=== PATIENT | male | born 1975 | race Caucasian/White ===

== ENCOUNTER 2018-10-07 09:26 | Inpatient (IN) | payer MEDICAID ==
[~2018-10-07] VITALS: Ht 165.1 cm; Wt 118.2 kg
[2018-10-07 09:38] VITALS: Ht 165.1 cm; Wt 118.2 kg
[2018-10-07] MEDS ORDERED: IOHEXOL 100 ML ONE (09:45)
[2018-10-07] MEDS ORDERED: SOD CHLORIDE 0.9% 100 ML ONE (09:45)
[2018-10-07] MEDS ORDERED: IOHEXOL 350MG/ML 50 ML BTL ONE (09:46)
[2018-10-07] MEDS ORDERED: LISI-471 PO (10:26)
--- NOTE | 2018-10-07 11:18 | ERD ---
ER Documentation Chief Complaint Chief Complaint Pt. 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 The patient does not have any dy sarthria or a aphasia. He has been ambulatory without difficulty. The patient's symptoms began last night at around 7 PM and they continued when he woke up this morning which is what prompted him to call an ambulance. The patient does not endorse any eye pain. He does not endorse any visual field deficits. He reports trouble focusing. He does not endorse any alleviating or exacerbating factors. The patient denies feeling sick recently. The patient denies fever or chills. The patient has had no headache. The patient does not endorse neck or back pain. The patient denies lightheadedness or dizziness. The patient has had no chest pain or trouble breathing. The patient denies nausea or vomiting. The patient denies abdominal pain. The patient denies changes to bowel movements or urination. ROS All systems reviewed and are negative except as per history of present illness. Medications Home Meds Reported Medications Lisinopril* (Lisinopril*) 20 Mg Tablet, 20 MG PO DAILY, #30 TAB 10/07/18 Allergies Allergies: Coded Allergies: No Known Allergy (Unverified , 10/07/18) PMhx/Soc History of Surgery: Yes (abdominal, right eye) Anesthesia Reaction: No Hx Neurological Disorder: No Hx Respiratory Disorders: No Hx Cardiac Disorders: Yes (HTN) Hx Psychiatric Problems: No Hx Miscellaneous Medical Probl: Yes (right eye blindness due to glaucoma) Hx Alcohol Use: No Hx Substance Use: No Hx Tobacco Use: No Smoking Status: Never smoker FmHx Family History: No diabetes Physical Exam Vitals Vital Signs Date Temp Pulse Resp B/P (MAP) Pulse Ox O2 O2 Flow FiO2 Time Delivery Rate 10/07/18 72 20 137/100 98 Room Air 11:15 (112) 10/07/18 97.8 86 20 142/92 98 09:38 (109) Physical Exam Const: No apparent distress, well-developed, well-nourished Head: Normocephalic, Atraumatic Eyes: Normal Conjunctiva. Extraocular movements intact. Left pupil equal and reactive. Right pupil is opaque and nonreactive, chronic. ENT: Normal External Ears, Nose and Mouth. Neck: Full range of motion. No meningismus. Resp: Clear to auscultation bilaterally, No wheezes, rales or rhonchi Cardio: Regular rate and rhythm. No murmurs, rubs or gallops Abd: Soft, non tender, non distended. Normal bowel sounds Skin: No petechiae or rashes Back: No midline tenderness. No CVA tenderness Ext: No cyanosis, or edema Neur: Awake and alert, oriented 4. Cranial nerves intact. No facial droop. Normal strength, sensation and coordination. Psych: Normal Mood and Affect Result Diagram: 10/07/1895010/07/18950 Results 24 hrs Laboratory Tests Test 10/07/18 09:43 10/07/18 09:51 10/07/18 11:15 Bedside Glucose 146 mg/dL White Blood Count 10.6 10^3/ul Red Blood Count 5.09 10^6/ul Hemoglobin 14.6 g/dl Hematocrit 44.9 % Mean Corpuscular Volume 88.2 fl Mean Corpuscular Hemoglobin 28.7 pg Mean Corpuscular 32.5 g/dl Hemoglobin Concent Red Cell Distribution Width 12.6 % Platelet Count 205 10^3/UL Mean Platelet Volume 11.5 fl Immature Granulocytes % 0.600 % Neutrophils % 73.0 % Lymphocytes % 15.9 % Monocytes % 8.6 % Eosinophils % 1.5 % Basophils % 0.4 % Nucleated Red Blood Cells % 0.0 /100WBC Immature Granulocytes # 0.060 10^3/ul Neutrophils # 7.8 10^3/ul Lymphocytes # 1.7 10^3/ul Monocytes # 0.9 10^3/ul Eosinophils # 0.2 10^3/ul Basophils # 0.0 10^3/ul Nucleated Red Blood Cells # 0.0 10^3/ul Prothrombin Time 12.6 Sec Prothrombin Time Ratio 1.0 INR International 0.93 Normalized Ratio Activated Partial Thromboplast 30.5 Sec Time Sodium Level 143 mmol/L Potassium Level 3.7 mmol/L Chloride Level 107 mmol/L Carbon Dioxide Level 27 mmol/L Anion Gap 9 Blood Urea Nitrogen 20 mg/dl Creatinine 0.66 mg/dl Est Glomerular Filtrat > 60 mL/min Rate mL/min Glucose Level 171 mg/dl Hemoglobin A1c 6.6 % Calcium Level 9.0 mg/dl Creatine Kinase 94 IU/L Creatine Kinase Index 1.8 Creatinine Kinase MB (Mass) 1.65 ng/ml Troponin I < 0.012 ng/ml Triglycerides Level 247 mg/dl Cholesterol Level 146 mg/dl LDL Cholesterol, Calculated 61 mg/dl HDL Cholesterol 36 mg/dl Cholesterol/HDL Ratio 4.0 RATIO Ethyl Alcohol Level < 10.0 mg/dl Urine Color STRAW Urine Clarity CLEAR Urine pH 6.0 Urine Specific [place] > 1.060 Urine Ketones NEGATIVE mg/dL Urine Nitrite NEGATIVE mg/dL Urine Bilirubin NEGATIVE mg/dL Urine Urobilinogen NEGATIVE mg/dL Urine Leukocyte Esterase NEGATIVE Darrell/ul Urine Hemoglobin NEGATIVE mg/dL Urine Glucose NEGATIVE mg/dL Urine Total Protein NEGATIVE mg/dl Urine Opiates Screen Negative Urine Barbiturates Negative Urine Amphetamines Screen Negative Urine Benzodiazepines Screen Negative Urine Cocaine Screen Negative Urine Cannabinoids Negative Current Medications Medications Dose Sig/Luna Start Time Status Last (Trade) Ordered Route PRN Stop Time Admin Dose Reason Admin Aspirin 324 mg ONCE ONCE 10/07/18 10/07/18 (Aspirin) PO 13:00 10/07/18 12:47 13:01 Procedures/MDM MDM The patient's presentation warrants further investigation. Previous medical records, if available, were reviewed. LABS The patient's laboratory testing was obtained and reviewed. No emergent treatment was required unless described below. CBC: No E/o systemic infection or severe anemia or thrombocytopenia Chemistry: No E/o severe acidosis or alkalosis or renal failure or diabetic ketoacidosis PT/INR: No E/o significant coagulopathy Troponin: No E/o acute ischemia Lipid panel: Hypertriglyceridemia HbA1c: Elevated Tox: No E/o alcohol abuse. Urine: No evidence of infection or hematuria. UDS is negative. EKG EKG read by me: Rate/Rhythm: Regular rate and rhythm at a rate of 85 bpm Intervals: Normal [place]: Normal Impression: No evidence of acute ischemia or arrhythmia IMAGING Imaging and Radiology interpretation reviewed. CT head FINDINGS: The ventricular system and peripheral CSF spaces are unremarkable. Extensive periventricular and subcortical deep white matter changes that is nonspecific and consistent with chronic microvascular ischemic disease. No evidence of intracranial masses hemorrhages or midline shift. The mclaughlin-white matter differentiation is unremarkable. Bones of the calvarium are intact. The visualized paranasal sinuses and mastoids are unremarkable. The bones of the calvarium are intact. Soft tissues are unremarkable. Incidentally noted is evidence of previous bilateral ocular surgery. IMPRESSION: 1. No evidence of intracranial masses hemorrhages or midline shift. 2. Extensive nonspecific chronic microvascular ischemic changes. Addendum: Dr. Kitchen was telephoned of these results on 10/07/2018 at 1005 hours. Electronically viewed and signed by Physician Edgardo on 10/07/2018 10:12 CTA Head FINDINGS: CT ANGIOGRAM NECK: The origins of the great vessels arising off of the aortic arch are patent with common origin of the brachiocephalic, left common carotid arteries noted. The bilateral common carotid arteries appear patent. The bilateral carotid bulbs - bifurcations and internal carotid arteries are patent, without stenosis by NASCET criteria identified. Noted is medial - retropharyngeal course of the proximal left internal carotid artery. The vis ualized bilateral vertebral arteries appear patent with dominant left vertebral artery noted. No dissection is identified. CT ANGIOGRAM BRAIN: The bilateral internal carotid arteries are patent. The bilateral middle and anterior cerebral arteries appear patent. The bilateral vertebral arteries are patent with dominant left vertebral artery. The basilar artery is patent. The bilateral posterior cerebral arteries appear patent. No aneurysm or arteriovenous malformation is identified. IMPRESSION: No cervical or major vessel intracranial arterial occlusion/stenosis identified. Electronically viewed and signed by .Danish Tong MD, MD on 10/07/2018 11:02 CXR FINDINGS: The heart and mediastinum are within normal limits. The lungs are clear. There is no pleural effusion or pneumothorax. IMPRESSION: No acute disease Electronically viewed and signed by Bud Ron MD, on 10/07/2018 10:21 TREATMENT/DISPOSITION The patient's presenting with nonfocal neurologic symptoms with reported transient left sided visual deficit and right-sided paresthesias. The patient's neurologic exam is objectively intact, however. The patient has no sensory, strength or coordination deficits. The CT scan does not reveal any obvious acute ischemia. However, there is extensive nonspecific chronic microvascular ischemic changes that the radiologist was concerned about given the patient's age. While the patient's symptoms have improved, TIA is certainly a possibility. There is a recommendation to evaluate the patient further and obtain an MRI. I do feel that this would be appropriate. The patient is not a candidate for TPA. There is no evidence of large vessel occlusion on the CTA. The patient is not a candidate for thrombectomy. The patient was given a dose of aspirin in the emergency department. The patient endorses decreased ability to focus and blurry vision of the left eye. However, he is able to see. His visual dietrich are intact. I do not see evidence of glaucoma at this time. The patient does not have evidence of iritis or conjunctivitis or endophthalmitis. There is no ocular trauma. The patient's symptoms are not consistent with retinal or vitreous hemorrhage. ADMISSION At this time, I feel that the patient requires admission for further evaluation and management. The patient will be admitted to panel in accordance with the patient's insurance. The patient was accepted by Dr. Galo at 12:38 PM on October 07, 2018. Disclaimer: Inadvertent spelling and grammatical errors are likely due to EHR/dictation software use and do not reflect on the overall quality of patient care. Note that the electronic time recorded on this note does not necessarily reflect the actual time of the patient encounter. Departure Diagnosis: Primary Impression: TIA (transient ischemic attack) Additional Impressions: Fatigue Fatigue type: unspecified Qualified Codes: R53.83 - Other fatigue Blurry vision Paresthesias Hypertriglyceridemia Condition: Serious ROSALBA KITCHEN MD October 07, 2018 11:18
[2018-10-07] MEDS ORDERED: ACETAMINOPHEN 325 MG TAB PO PRN (13:00)
[2018-10-07] MEDS ORDERED: ASPIRIN 81 MG TAB PO ONE (13:00)
[2018-10-07] MEDS ORDERED: ONDANSETRON 4 MG INJ IV PRN ×2 (13:00→14:00)
[2018-10-07] MEDS ORDERED: ATORVASTATIN 80 MG TAB PO ONE (14:00)
[2018-10-07] MEDS ORDERED: DOCUSATE SODIUM 100 MG CAP PO PRN (14:00)
[2018-10-07] MEDS ORDERED: MAGNESIUM HYDROXIDE 30ML CUP PO PRN (14:00)
[2018-10-07] MEDS ORDERED: HYDROCODONE/APAP (5/325) TAB PO PRN (14:00)
[2018-10-07] MEDS ORDERED: morphine 2 MG INJ IV PRN (14:00)
[2018-10-07] MEDS ORDERED: ALBUTEROL/IPRATROPIUM (NEB) 3 ML AMP HHN PRN (14:00)
[2018-10-07] MEDS ORDERED: NACL 0.9% 3 ML SYG IV SCH (14:00)
[2018-10-07] MEDS ORDERED: LORAZEPAM 2 MG INJ IV PRN (14:00)
[2018-10-07] MEDS ORDERED: NITROGLYCERIN (SL) 0.4 MG TAB SL PRN (14:00)
[2018-10-07] MEDS ORDERED: DEXTROSE 50% 50 ML SYRINGE IV PRN ×2 (14:30)
[2018-10-07] MEDS ORDERED: GLUCAGON 1 MG INJ IM PRN (14:30)
[2018-10-07] MEDS ORDERED: GLUCOSE GEL 15 GRAM TUBE BUCCAL PRN (14:30)
[2018-10-07] MEDS ORDERED: GLUCOSE GEL 15 GRAM TUBE PO PRN ×2 (14:30)
--- NOTE | 2018-10-07 15:00 | HP ---
DATE OF ADMISSION: 10/07/2018 IDENTIFICATION: This is a 43-year-old male. CHIEF COMPLAINT: Decreased vision and right-sided numbness. HISTORY OF PRESENT ILLNESS: A 43-year-old male with past medical history of right eye blindness seco ndary to glaucoma, hypertension, previous right eye surgery, who has been having complaints that bega n last night since 7:00 p.m. He presents with blurry vision, also some weakness symptoms and weaknes s including his right arm and face. The patient denied any upper or lower GI bleeding. No nausea, v omiting. No fevers or chills. No diarrhea or constipation. He has been ambulating well without any difficulty. When he woke this morning and the symptoms were still present, he decided to call EMS. When he arrived, he was found with normal vital signs and normal labs, but there was a concern of TI A and he underwent head imaging studies that showed no evidence of any intracranial masses, hemorrhag es or midline shifts. There are some nonspecific chronic microvascular ischemic changes. His CT of the neck did not show any cervical or major intracranial arterial occlusions, stenosis identified. PAST MEDICAL HISTORY: As above. ALLERGIES: NO KNOWN DRUG ALLERGIES. HOME MEDICATIONS: Lisinopril 20 mg daily. PAST SURGICAL HISTORY: Right eye surgery and also abdominal surgery. SOCIAL HISTORY: Negative for smoking, drinking or IV drug abuse. FAMILY HISTORY: Noncontributory. PHYSICAL EXAMINATION: VITAL SIGNS: Today, T-max 97.8, pulse 86 to 72, respirations 20, blood pressure 142 systolic over 90 diastolic, saturating at 98% room air. GENERAL: The patient is lying in bed, answering questions appropriately, slightly obese, otherwise i n no acute distress. HEENT: Left pupil is equal, round, reactive to light. Extraocular muscles are intact. The right pu pil is opaque, nonreactive. NECK: Supple. No thyromegaly. LUNGS: Clear to auscultation bilaterally. CARDIOVASCULAR: S1, S2 heard. No murmurs, rubs or gallops. ABDOMEN: Soft, nontender, nondistended. Normal bowel sounds. No rebound or guarding. MUSCULOSKELETAL: No lower extremity edema bilaterally. NEUROLOGIC: No focal deficits. LABORATORIES: CBC is normal. Basic metabolic panel is normal. Troponin is negative. Triglycerides were high at 247. UA shows negative nitrites, negative leukocyte esterase. Blood alcohol level is less than 10. U-tox is negative. Coags are normal. DIAGNOSTIC DATA: We mentioned the brain scan findings. He also had a chest x-ray performed that indy wed no acute disease. ASSESSMENT AND PLAN: A 43-year-old male with prior history of glaucoma and hypertension, who comes i n with right-sided weakness symptoms that are resolved now and decreased vision left eye, rule out st roke versus transient ischemic attack. 1. Right-sided weakness symptoms and decreased left eye vision. Again, suspect transient ischemic a ttack versus stroke in the differential diagnosis versus other. Admit the patient. Do neuro checks every 4 hours. Get PT, OT and speech therapy consults. Get carotid Doppler studies and echocardiogr am as well. Continue high dose aspirin and statin. Allow for permissive hypertension at this time. Follow up A1c, TSH and lipid panel. Also, start Lipitor. 2. For hypertension, again allow for permissive hypertension at this time. 3. Deep venous thrombosis prophylaxis. Heparin subcutaneously. Dictated By: BRALDY ACOSTA Conf#: [id number] DID#: [id number] CC: ALBINA BROOKE;*EndCC*
[2018-10-07 16:15] VITALS: BP 165/89; PULSE 66; RESP 16
[2018-10-07] MEDS: SOD CHLORIDE 0.45% 1,000 ML IV SCH (16:40)
[2018-10-07 16:49] VITALS: PULSE 76
[2018-10-07] MEDS: INSULIN ASPART [NOVOLOG] 3 ML PEN SC SCH ×2 (17:00→20:49)
--- NOTE | 2018-10-07 19:00 | RADRPT ---
Echocardiogram Report Patient Name: SANDER GREENEatient ID: [id number] : 1975 (43y 8m)Study Date: 10/07/2018 2:02:55 PM Gender: MAccession #: [id number] Tech: ElishaLeticia Beltran [facility] Location: [facility] Ref.Physician: BRADLY MONROY Height(Cm): BSA: Weight(Kg): Quality: AdequateAccount #: Procedures: Echocardiographic Report: Transthoracic echocardiogram with complete 2D, M-Mode, and doppler examination. Indications: Transient Ischemic Attack. Measurements: 2D/M Mode Doppler Measurement Value Normal Range Measurement Value Normal Range LVIDd 2D 4.3 [ 4.2 - 5.8 ] cm AV Peak Hans[place] 162.0 [ 100.0 - 170.0 ] cm/sec LVIDs 2D 2.6 [ 2.5 - 4.0 ] cm AV Peak PG 10.0 [ 2.0 - 9.0 ] mmHg LVPWd 2D 1.0 [ 0.6 - 1.0 ] cm LVOT Peak Hans[place] 154.0 [ 70.0 - 110.0 ] cm/sec IVSd 2D 1.0 [ 0.6 - 1.0 ] cm LVOT Peak PG 9.0 [ 2.0 - 6.0 ] mmHg AoR Diam 2D 2.8 [ 2.6 - 3.4 ] cm MV E Peak Hans[place] 78.0 [ 60.0 - 130.0 ] cm/sec LA Dimen 2D 2.8 [ 3.0 - 4.0 ] cm MV E Peak PG 2.0 mmHg MV A Peak Hans[place] 86.0 [ 100.0 - 120.0 ] cm/sec MV A Peak PG 3.0 mmHg Lat E` Hansel 8.0 [ 10.0 - 15.0 ] cm/sec Lateral E/E` 9.8 [ 1.0 - 2.0 ] ratio TR Mean Hansel 216.0 cm/sec TR Mean PG 19.0 mmHg RVSP 22.0 [ 10.0 - 36.0 ] mmHg RA Pressure 3.0 mmHg Findings: Left Ventricle: Normal left ventricular systolic function. Normal left ventricular cavity size. Normal left ventricular wall thickness. Ejection fraction is visually estimated at 65 %. Tissue Doppler/Mitral Doppler indices are consistent with impaired relaxation (Stage I diastolic dysfunction). Right Ventricle: Normal right ventricular size. Normal right ventricular systolic function. Left Atrium: The left atrium is normal in size. Right Atrium: The right atrium is normal in size. Mitral Valve: Normal appearance and function of the mitral valve with trace physiologic regurgitation. Aortic Valve: Normal appearance of the aortic valve. No significant aortic stenosis or insufficiency. Tricuspid Valve: Normal appearance of the tricuspid valve. Estimated peak PA systolic pressure 22 mmHg. There is trace tricuspid regurgitation. Pulmonic Valve: Normal pulmonic valve appearance. Pericardium: Normal pericardium with no significant pericardial effusion. Aorta: Normal aortic root. IVC: Normal size and normal respiratory collapse consistent with normal right atrial pressure. Conclusions: Normal left ventricular systolic function. Normal left ventricular cavity size. Normal left ventricular wall thickness. Ejection fraction is visually estimated at 65 %. Tissue Doppler/Mitral Doppler indices are consistent with impaired relaxation (Stage I diastolic dysfunction). Normal right ventricular size. Normal right ventricular systolic function. The left atrium is normal in size. The right atrium is normal in size. No significant valvular stenosis or regurgitation seen. Normal pericardium with no significant pericardial effusion. Electronically Signed By: Dom Mckee 2018-10-07 19:00:03 PDT
[2018-10-07 20:00] VITALS: PULSE 62
[2018-10-07 20:33] VITALS: BP 155/83; PULSE 65; RESP 20
[2018-10-07] MEDS: HEPARIN 5,000 UNIT/1 ML VIAL SC SCH (20:51)
[2018-10-08] VITALS (14 sets, daily range): BP systolic 128–162; BP diastolic 69–92; PULSE 64–96; RESP 17–20
[2018-10-08] MEDS: INSULIN ASPART [NOVOLOG] 3 ML PEN SC SCH ×6 (01:00→21:00)
[2018-10-08] MEDS: ACCU-CHEK XX SCH (01:12)
[2018-10-08] MEDS: SOD CHLORIDE 0.45% 1,000 ML IV SCH ×3 (03:06→22:11)
[2018-10-08] MEDS: ACETAMINOPHEN 325 MG TAB PO PRN ×2 (06:11→16:51)
[2018-10-08] MEDS: ATORVASTATIN 20 MG TAB PO SCH ×2 (07:41→22:02)
[2018-10-08] MEDS: HEPARIN 5,000 UNIT/1 ML VIAL SC SCH ×2 (09:00→22:38)
[2018-10-08] MEDS: ASPIRIN (EC) 325 MG TAB PO SCH (09:20)
--- NOTE | 2018-10-08 14:12 | PN ---
Date/Time of Note Date/Time of Note DATE: 10/08/18 TIME: 14:03 Assessment/Plan VTE Prophylaxis Risk score (from Ns)>0 risk: 2 SCD applied (from Ns): No SCD contraindicated: other Pharmacological prophylaxis: heparin Lines/Catheters IV C[facility]ter Type (from [facility]): Peripheral IV Urinary Cath still in place: No Assessment/Plan Hospital Course S: Patient found with acute CVA on MRI brain findings. Worked with physical therapy and occupational therapy teams earlier today. No other acute events overnight. O: VS- see below PHYSICAL EXAMINATION: GENERAL: lying in bed, answering questions appropriately, slightly obese, otherwise in no acute distress. HEENT: Left pupil is equal, round, reactive to light. Extraocular muscles are intact. The right pupil is opaque, nonreactive. NECK: Supple. No thyromegaly. LUNGS: Clear to auscultation bilaterally. CARDIOVASCULAR: S1, S2 heard. No murmurs, rubs or gallops. ABDOMEN: Soft, nontender, nondistended. Normal bowel sounds. No rebound or guarding. MUSCULOSKELETAL: No lower extremity edema bilaterally. NEUROLOGIC: No focal deficits. MRI brain: IMPRESSION: 1. An 8 mm focus of acute/recent infarct in the left thalamus. 2. No acute intracranial hemorrhage or mass. 3. Marked confluent nonspecific foci of white matter signal abnormality. Differential consideration includes chronic hypertensive encephalopathy, vasculopathy, CADASIL, microvascular ischemic disease, demyelinating disease, toxic /metabolic or infectious/inflammatory insults. ASSESSMENT AND PLAN: 43-year-old male with prior history of glaucoma and hypertension, who comes in with right-sided weakness symptoms that are resolved now and decreased vision left eye, rule out stroke versus transient ischemic attack. 1. Right-sided weakness symptoms and decreased left eye vision. Again, positive CVA - 8 mm focus found in left thalamus area. -Continue neuro checks every 4 hours and follow-up recommendations from PT, OT and speech therapy consults. - Continue high dose aspirin and statin. - Allow for permissive hypertension at this time. - Follow up A1c, TSH and lipid panel. 2. For hypertension - again allow for permissive hypertension at this time. 3. Deep venous thrombosis prophylaxis. Heparin subcutaneously. Result Diagram: 10/08/18 0505 10/08/18 0505 Results 24hrs Laboratory Tests Test 10/07/18 16:55 10/07/18 20:49 10/08/18 01:08 10/08/18 05:05 Bedside Glucose 88 85 84 White Blood Count 10.4 Red Blood Count 5.30 Hemoglobin 14.9 Hematocrit 46.9 Mean Corpuscular 88.5 Volume Mean Corpuscular 28.1 L Hemoglobin Mean Corpuscular 31.8 L Hemoglobin Concent Red Cell 12.9 Distribution Width Platelet Count 200 Mean Platelet Volume 11.6 H Immature 0.600 H Granulocytes % Neutrophils % 69.5 Lymphocytes % 17.8 Monocytes % 9.5 Eosinophils % 2.1 Basophils % 0.5 Nucleated Red Blood 0.0 Cells % Immature 0.060 H Granulocytes # Neutrophils # 7.3 Lymphocytes # 1.9 Monocytes # 1.0 H Eosinophils # 0.2 Basophils # 0.1 Nucleated Red Blood 0.0 Cells # Sodium Level 142 Potassium Level 3.9 Chloride Level 106 Carbon Dioxide Level 29 Anion Gap 7 Blood Urea Nitrogen 16 Creatinine 0.67 Est Glomerular > 60 Filtrat Rate mL/min Glucose Level 93 # Hemoglobin A1c 6.4 H Calcium Level 8.9 Phosphorus Level 3.5 Magnesium Level 1.9 Triglycerides Level 362 H Cholesterol Level 141 LDL Cholesterol, 40 Calculated HDL Cholesterol 29 Cholesterol/HDL 4.8 Ratio Thyroid Stimulating 1.750 Hormone (TSH) Test 10/08/18 05:26 10/08/18 09:22 10/08/18 11:38 Bedside Glucose 85 90 125 Exam/Review of Systems Exam Vitals Vital Signs Date Temp Pulse Resp B/P (MAP) Pulse Ox O2 O2 Flow FiO2 Time Delivery Rate 10/08/18 96 12:10 10/08/18 98.1 17 145/89 97 Room Air 07:33 (107) Intake and Output 10/07/18 10/07/18 10/08/18 1515:00 23:00 07:00 IntakeIntake Total 135 ml BalanceBalance 135 ml Results Results 24hrs Laboratory Tests Test 10/07/18 16:55 10/07/18 20:49 10/08/18 01:08 10/08/18 05:05 Bedside Glucose 88 85 84 White Blood Count 10.4 Red Blood Count 5.30 Hemoglobin 14.9 Hematocrit 46.9 Mean Corpuscular 88.5 Volume Mean Corpuscular 28.1 L Hemoglobin Mean Corpuscular 31.8 L Hemoglobin Concent Red Cell 12.9 Distribution Width Platelet Count 200 Mean Platelet Volume 11.6 H Immature 0.600 H Granulocytes % Neutrophils % 69.5 Lymphocytes % 17.8 Monocytes % 9.5 Eosinophils % 2.1 Basophils % 0.5 Nucleated Red Blood 0.0 Cells % Immature 0.060 H Granulocytes # Neutrophils # 7.3 Lymphocytes # 1.9 Monocytes # 1.0 H Eosinophils # 0.2 Basophils # 0.1 Nucleated Red Blood 0.0 Cells # Sodium Level 142 Potassium Level 3.9 Chloride Level 106 Carbon Dioxide Level 29 Anion Gap 7 Blood Urea Nitrogen 16 Creatinine 0.67 Est Glomerular > 60 Filtrat Rate mL/min Glucose Level 93 # Hemoglobin A1c 6.4 H Calcium Level 8.9 Phosphorus Level 3.5 Magnesium Level 1.9 Triglycerides Level 362 H Cholesterol Level 141 LDL Cholesterol, 40 Calculated HDL Cholesterol 29 Cholesterol/HDL 4.8 Ratio Thyroid Stimulating 1.750 Hormone (TSH) Test 10/08/18 05:26 10/08/18 09:22 10/08/18 11:38 Bedside Glucose 85 90 125 Medications Medication Current Medications IV Flush (NS 3 ml) 3 ml PER PROTOCOL IV ; Start 10/07/18 at 14:00 Ondansetron HCl (Zofran Inj) 4 mg Q6H PRN IV NAUSEA/VOMITING; Start 10/07/18 at 14:00 Acetaminophen (Tylenol Tab) 650 mg Q6H PRN PO .PAIN 1-3 OR TEMP Last administered on 10/08/18at 06:11; Admin Dose 650 MG; Start 10/07/18 at 14:00 Acetaminophen/ Hydrocodone Bitart ([place] (5/325)) 1 tab Q6H PRN PO .MOD PAIN 4- 6; Start 10/07/18 at 14:00 Morphine Sulfate (morphine) 2 mg Q4H PRN IV .SEVERE PAIN 7-10; Start 10/07/18 at 14:00 Docusate Sodium (Colace) 100 mg Q12H PRN PO .CONSTIPATION; Start 10/07/18 at 14:00 Magnesium Hydroxide (Milk Of Mag) 30 ml DAILY PRN PO .CONSTIPATION; Start 10/07/18 at 14:00 Heparin Sodium (Porcine) (Heparin (5000 Units/1ml)) 5,000 unit Q12 SC Last administered on 10/07/18at 20:51; Admin Dose 5,000 UNIT; Start 10/07/18 at 21:00 Sodium Chloride 1,000 ml @ 75 mls/hr [id number] IV Last administered on 10/08/18at 06:35; Admin Dose 75 MLS/HR; Start 10/07/18 at 13:46 Lorazepam (Ativan) 0.5 mg Q6H PRN IV ANXIETY; Start 10/07/18 at 14:00 Albuterol/ Ipratropium (Duoneb) 3 ml Q4H RESP THERAPY PRN HHN SHORTNESS OF BREATH; Start 10/07/18 at 14:00 Hydralazine HCl (Apresoline) 10 mg Q6H PRN IV ELEVATED BLOOD PRESSURE; Start 10/07/18 at 14:00 Nitroglycerin (Nitroglycerin (Sl Tab) 0.4 Mg) 1 tab Q5M PRN SL ANGINA; Start 10/07/18 at 14:00 Aspirin (Ecotrin) 325 mg DAILY PO Last administered on 10/08/18at 09:20; Admin Dose 325 MG; Start 10/08/18 at 09:00 Diagnostic Test (Pha) (Accu-Chek) 1 ea 02 XX ; Start 10/08/18 at 02:00 Insulin Aspart (Novolog Insulin Pen) NOVOLOG *MILD* ALGORI... Q4 SC ; Start 10/07/18 at 17:00 Atorvastatin Calcium (Lipitor) 20 mg HS PO ; Start 10/08/18 at 09:00 Miscellaneous Information 1 ea NOTE XX ; Start 10/07/18 at 14:30 Glucose (Glutose) 15 gm Q15M PRN PO DECREASED GLUCOSE; Start 10/07/18 at 14:30 Glucose (Glutose) 22.5 gm Q15M PRN PO DECREASED GLUCOSE; Start 10/07/18 at 14:30 Dextrose (D50w Syringe) 25 ml Q15M PRN IV DECREASED GLUCOSE; Start 10/07/18 at 14:30 Dextrose (D50w Syringe) 50 ml Q15M PRN IV DECREASED GLUCOSE; Start 10/07/18 at 14:30 Glucagon (Glucagen) 1 mg Q15M PRN IM DECREASED GLUCOSE; Start 10/07/18 at 14:30 Glucose (Glutose) 15 gm Q15M PRN BUCCAL DECREASED GLUCOSE; Start 10/07/18 at 14:30 BRADLY MONROY October 08, 2018 14:12
--- NOTE | 2018-10-08 17:08 | CONS ---
Assessment/Plan Assessment/Plan Hospital Course 43 yo M with hx of HTN, obesity who presents for evaluation of R hemisensory loss, R arm/leg weakness. MRI brain confirmed an acute L thalamic infarct... for which neurology is consulted. CTA H/N is unremarkable Echo is unremarkable UDS neg, LDL 40 P: Add hypercoag panel, ESR, RPR, HIV Recommend MICHAEL to further evaluate a cardioembolic etiology Cont ASA/Lipitor for secondary stroke prevention BP and other medical management per primary PT/OT as necessary Will follow clinically, to recommend neurologic studies, as necessary Consultation Date/Type/Reason Admit Date/Time October 08, 2018 at 09:32 Type of Consult Neurology Reason for Consultation stroke Requesting Provider: BRADLY MONROY Date/Time of Note DATE: 10/08/18 TIME: 17:04 Hx of Present Illness 43 yo M with hx of severe glaucoma c/b R eye blindness, HTN, obesity who presents with blurred vision and R face and arm weakness. History was obtained from pt and chart review. He currently endorses minor R arm and leg weakness. He additionally notes tingling in the R side of his face and hand. 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 He presents with blurry vision, also some weakness symptoms and weakness including his right arm and face. The patient denied any upper or lower GI bleeding. No nausea, vomiting. No fevers or chills. No diarrhea or constipation. He has been ambulating well without any difficulty. When he woke this morning and the symptoms were still present, he decided to call EMS. When he arrived, he was found with normal vital signs and normal labs, but there was a concern of TIA and he underwent head imaging studies that showed no evidence of any intracranial masses, hemorrhages or midline shifts. There are some nonspecific chronic microvascular ischemic changes. His CT of the neck did not show any cervical or major intracranial arterial occlusions, stenosis identified. negative unless noted otherwise in HPI Exam/Review of Systems Exam Vitals Vital Signs Date Temp Pulse Resp B/P (MAP) Pulse Ox O2 O2 Flow FiO2 Time Delivery Rate 10/08/18 87 16:38 10/08/18 97.7 18 130/87 98 Room Air 16:36 (101) Intake and Output 10/07/18 10/07/18 10/08/18 1515:00 23:00 07:00 IntakeIntake Total 135 ml BalanceBalance 135 ml Exam PE: Gen Appearance: No Apparent Distress HEENT: Normocephalic Cardiovascular: Regular rate Lungs: Clear bilaterally Abdomen: Soft Extremities: Dry NE: The patient was alert and oriented. Language was normal. Fund of knowledge was normal. Pupils were equal and reactive to light. There was no afferent pupillary defect. Visual dietrich were limited in both eyes . Funduscopic examination was limited. Extra-ocular movements were full. Ptosis was absent. There was no nystagmus. Facial sensation was diminished on the R side of his face. Face was symmetric with normal strength. Hearing was intact. Palate movements were normal. Neck strength was normal. There was normal tongue bulk and speed of movement. Tone was normal. Muscle bulk was normal. I did not see fasciculations. Arms and legs were mildly weak on the R. Vibration sensation was slightly diminished on the R. Temperature and pinprick sensation was normal. Rapid alternating movements were normal. There was no dysmetria. There was no intention tremor. Gait was deferred due to bedrest. Arm and leg reflexes were 2+ and symmetric. Bowling's sign was absent. Plantar responses were flexor. Results Result Diagram: 10/08/18 0505 10/08/18 0505 Results 24hrs Laboratory Tests Test 10/07/18 20:49 10/08/18 01:08 10/08/18 05:05 10/08/18 05:26 Bedside Glucose 85 84 85 White Blood Count 10.4 Red Blood Count 5.30 Hemoglobin 14.9 Hematocrit 46.9 Mean Corpuscular 88.5 Volume Mean Corpuscular 28.1 L Hemoglobin Mean Corpuscular 31.8 L Hemoglobin Concent Red Cell 12.9 Distribution Width Platelet Count 200 Mean Platelet Volume 11.6 H Immature 0.600 H Granulocytes % Neutrophils % 69.5 Lymphocytes % 17.8 Monocytes % 9.5 Eosinophils % 2.1 Basophils % 0.5 Nucleated Red Blood 0.0 Cells % Immature 0.060 H Granulocytes # Neutrophils # 7.3 Lymphocytes # 1.9 Monocytes # 1.0 H Eosinophils # 0.2 Basophils # 0.1 Nucleated Red Blood 0.0 Cells # Sodium Level 142 Potassium Level 3.9 Chloride Level 106 Carbon Dioxide Level 29 Anion Gap 7 Blood Urea Nitrogen 16 Creatinine 0.67 Est Glomerular > 60 Filtrat Rate mL/min Glucose Level 93 # Hemoglobin A1c 6.4 H Calcium Level 8.9 Phosphorus Level 3.5 Magnesium Level 1.9 Triglycerides Level 362 H Cholesterol Level 141 LDL Cholesterol, 40 Calculated HDL Cholesterol 29 Cholesterol/HDL 4.8 Ratio Thyroid Stimulating 1.750 Hormone (TSH) Test 10/08/18 09:22 10/08/18 11:38 10/08/18 16:58 Bedside Glucose 90 125 99 Medications Medication Current Medications IV Flush (NS 3 ml) 3 ml PER PROTOCOL IV ; Start 10/07/18 at 14:00 Ondansetron HCl (Zofran Inj) 4 mg Q6H PRN IV NAUSEA/VOMITING; Start 10/07/18 at 14:00 Acetaminophen (Tylenol Tab) 650 mg Q6H PRN PO .PAIN 1-3 OR TEMP Last administered on 10/08/18at 16:51; Admin Dose 650 MG; Start 10/07/18 at 14:00 Acetaminophen/ Hydrocodone Bitart ([place] (5/325)) 1 tab Q6H PRN PO .MOD PAIN 4- 6; Start 10/07/18 at 14:00 Morphine Sulfate (morphine) 2 mg Q4H PRN IV .SEVERE PAIN 7-10; Start 10/07/18 at 14:00 Docusate Sodium (Colace) 100 mg Q12H PRN PO .CONSTIPATION; Start 10/07/18 at 14:00 Magnesium Hydroxide (Milk Of Mag) 30 ml DAILY PRN PO .CONSTIPATION; Start 10/07/18 at 14:00 Heparin Sodium (Porcine) (Heparin (5000 Units/1ml)) 5,000 unit Q12 SC Last administered on 10/07/18at 20:51; Admin Dose 5,000 UNIT; Start 10/07/18 at 21:00 Sodium Chloride 1,000 ml @ 75 mls/hr [id number] IV Last administered on 10/08/18at 06:35; Admin Dose 75 MLS/HR; Start 10/07/18 at 13:46 Lorazepam (Ativan) 0.5 mg Q6H PRN IV ANXIETY; Start 10/07/18 at 14:00 Albuterol/ Ipratropium (Duoneb) 3 ml Q4H RESP THERAPY PRN HHN SHORTNESS OF BREATH; Start 10/07/18 at 14:00 Hydralazine HCl (Apresoline) 10 mg Q6H PRN IV ELEVATED BLOOD PRESSURE; Start 10/07/18 at 14:00 Nitroglycerin (Nitroglycerin (Sl Tab) 0.4 Mg) 1 tab Q5M PRN SL ANGINA; Start 10/07/18 at 14:00 Aspirin (Ecotrin) 325 mg DAILY PO Last administered on 10/08/18at 09:20; Admin Dose 325 MG; Start 10/08/18 at 09:00 Diagnostic Test (Pha) (Accu-Chek) 1 ea 02 XX ; Start 10/08/18 at 02:00 Insulin Aspart (Novolog Insulin Pen) NOVOLOG *MILD* ALGORI... Q4 SC ; Start 10/07/18 at 17:00 Atorvastatin Calcium (Lipitor) 20 mg HS PO ; Start 10/08/18 at 09:00 Miscellaneous Information 1 ea NOTE XX ; Start 10/07/18 at 14:30 Glucose (Glutose) 15 gm Q15M PRN PO DECREASED GLUCOSE; Start 10/07/18 at 14:30 Glucose (Glutose) 22.5 gm Q15M PRN PO DECREASED GLUCOSE; Start 10/07/18 at 14:30 Dextrose (D50w Syringe) 25 ml Q15M PRN IV DECREASED GLUCOSE; Start 10/07/18 at 14:30 Dextrose (D50w Syringe) 50 ml Q15M PRN IV DECREASED GLUCOSE; Start 10/07/18 at 14:30 Glucagon (Glucagen) 1 mg Q15M PRN IM DECREASED GLUCOSE; Start 10/07/18 at 14:30 Glucose (Glutose) 15 gm Q15M PRN BUCCAL DECREASED GLUCOSE; Start 10/07/18 at 14:30 Past Medical History reviewed Home Meds Reported Medications Brimonidine Tartrate* (Alphagan P*) 0.1%-15 Ml Opht Drops, 1 DROP LEFT EYE TID, #1 EA 10/08/18 Dorzolamide/Timolol* (Dorzolamide/Timolol*) 10 Ml Drops, 1 DROP LEFT EYE BID, #1 EA 10/08/18 Ciprofloxacin Opht* (Ciloxan*) 0.3%-3.5 Opht Oint, 1 APPLIC RIGHT EYE QID, EA 10/08/18 Lisinopril* (Lisinopril*) 20 Mg Tablet, 20 MG PO DAILY, #30 TAB 10/07/18 Medications Current Medications IV Flush (NS 3 ml) 3 ml PER PROTOCOL IV ; Start 10/07/18 at 14:00 Ondansetron HCl (Zofran Inj) 4 mg Q6H PRN IV NAUSEA/VOMITING; Start 10/07/18 at 14:00 Acetaminophen (Tylenol Tab) 650 mg Q6H PRN PO .PAIN 1-3 OR TEMP Last administered on 10/08/18at 16:51; Admin Dose 650 MG; Start 10/07/18 at 14:00 Acetaminophen/ Hydrocodone Bitart ([place] (5/325)) 1 tab Q6H PRN PO .MOD PAIN 4-6; Start 10/07/18 at 14:00 Morphine Sulfate (morphine) 2 mg Q4H PRN IV .SEVERE PAIN 7-10; Start 10/07/18 at 14:00 Docusate Sodium (Colace) 100 mg Q12H PRN PO .CONSTIPATION; Start 10/07/18 at 14:00 Magnesium Hydroxide (Milk Of Mag) 30 ml DAILY PRN PO .CONSTIPATION; Start 10/07/18 at 14:00 Heparin Sodium (Porcine) (Heparin (5000 Units/1ml)) 5,000 unit Q12 SC Last administered on 10/07/18at 20:51; Admin Dose 5,000 UNIT; Start 10/07/18 at 21:00 Sodium Chloride 1,000 ml @ 75 mls/hr [id number] IV Last administered on 10/08/18at 06:35; Admin Dose 75 MLS/HR; Start 10/07/18 at 13:46 Lorazepam (Ativan) 0.5 mg Q6H PRN IV ANXIETY; Start 10/07/18 at 14:00 Albuterol/ Ipratropium (Duoneb) 3 ml Q4H RESP THERAPY PRN HHN SHORTNESS OF BREATH; Start 10/07/18 at 14:00 Hydralazine HCl (Apresoline) 10 mg Q6H PRN IV ELEVATED BLOOD PRESSURE; Start 10/07/18 at 14:00 Nitroglycerin (Nitroglycerin (Sl Tab) 0.4 Mg) 1 tab Q5M PRN SL ANGINA; Start 10/07/18 at 14:00 Aspirin (Ecotrin) 325 mg DAILY PO Last administered on 10/08/18at 09:20; Admin Dose 325 MG; Start 10/08/18 at 09:00 Diagnostic Test (Pha) (Accu-Chek) 1 ea 02 XX ; Start 10/08/18 at 02:00 Insulin Aspart (Novolog Insulin Pen) NOVOLOG *MILD* ALGORI... Q4 SC ; Start 10/07/18 at 17:00 Atorvastatin Calcium (Lipitor) 20 mg HS PO ; Start 10/08/18 at 09:00 Miscellaneous Information 1 ea NOTE XX ; Start 10/07/18 at 14:30 Glucose (Glutose) 15 gm Q15M PRN PO DECREASED GLUCOSE; Start 10/07/18 at 14:30 Glucose (Glutose) 22.5 gm Q15M PRN PO DECREASED GLUCOSE; Start 10/07/18 at 14:30 Dextrose (D50w Syringe) 25 ml Q15M PRN IV DECREASED GLUCOSE; Start 10/07/18 at 14:30 Dextrose (D50w Syringe) 50 ml Q15M PRN IV DECREASED GLUCOSE; Start 10/07/18 at 14:30 Glucagon (Glucagen) 1 mg Q15M PRN IM DECREASED GLUCOSE; Start 10/07/18 at 14:30 Glucose (Glutose) 15 gm Q15M PRN BUCCAL DECREASED GLUCOSE; Start 10/07/18 at 14:30 Allergies: Coded Allergies: Penicillins (Verified Allergy, Intermediate, SEVERE RASHES, 10/07/18) Past Surgical History reviewed Social History reviewed Smoking Status: Never smoker NERY LAZAR NP October 08, 2018 17:08
[2018-10-08] MEDS ORDERED: BRIM15DR2 LEFT EYE (19:32)
[2018-10-08] MEDS ORDERED: DORZ10DR6 LEFT EYE (19:32)
[2018-10-08] MEDS ORDERED: CPR3OO3.5 RIGHT EYE (19:32)
[2018-10-08] MEDS ORDERED: BRIMONIDINE TARTRATE LEFT EYE SCH (21:00)
[2018-10-08] MEDS ORDERED: CIPROFLOXACIN 0.3% 3.5 GM OPH OINT RIGHT EYE SCH (21:00)
[2018-10-08] MEDS ORDERED: DORZOLAMIDE/TIMOLOL 10 ML OPH LEFT EYE SCH (21:00)
[2018-10-08] MEDS: DORZOLAMIDE/TIMOLOL/PF 0.2 ML DROPERETTE LEFT EYE SCH (22:00)
[2018-10-08] MEDS ORDERED: LATA2.5D19 LEFT EYE (22:22)
[2018-10-08] MEDS: CIPROFLOXACIN 0.3% 2.5 ML OPH RIGHT EYE SCH (22:39)
[2018-10-09] VITALS (10 sets, daily range): BP systolic 150–170; BP diastolic 87–101; PULSE 64–90; RESP 18–19
[2018-10-09] MEDS: INSULIN ASPART [NOVOLOG] 3 ML PEN SC SCH ×6 (00:34→20:56)
[2018-10-09] MEDS: ACCU-CHEK XX SCH (02:12)
[2018-10-09] MEDS: DORZOLAMIDE/TIMOLOL/PF 0.2 ML DROPERETTE LEFT EYE SCH ×2 (07:49→20:51)
[2018-10-09] MEDS: ASPIRIN (EC) 325 MG TAB PO SCH (07:49)
[2018-10-09] MEDS: BRIMONIDINE 0.15% 5 ML OPH LEFT EYE SCH ×3 (07:50→20:51)
[2018-10-09] MEDS: CIPROFLOXACIN 0.3% 2.5 ML OPH RIGHT EYE SCH ×4 (07:50→20:52)
[2018-10-09] MEDS: HEPARIN 5,000 UNIT/1 ML VIAL SC SCH ×2 (08:03→21:02)
[2018-10-09] MEDS: hydrALAzine 20 MG INJ IV PRN (08:36)
--- NOTE | 2018-10-09 09:41 | CONS ---
Assessment/Plan Assessment/Plan Hospital Course 43 yo M with hx of HTN, obesity who presents for evaluation of R hemisensory loss, R arm/leg weakness. MRI brain confirmed an acute L thalamic infarct... for which neurology is consulted. CTA H/N is unremarkable Echo is unremarkable UDS neg, LDL 40, ESR 10, HIV neg P: Await hypercoag panel, RPR Recommend MICHAEL to further evaluate a cardioembolic etiology Cont ASA/Lipitor for secondary stroke prevention BP and other medical management per primary PT/OT as necessary Will follow clinically, to recommend neurologic studies, as necessary Consultation Date/Type/Reason Admit Date/Time October 08, 2018 at 09:32 Type of Consult Neurology Reason for Consultation stroke Requesting Provider: BRADLY MONROY Date/Time of Note DATE: 10/09/18 TIME: 09:41 24 HR Interval Summary Free Text/Dictation Continues acute care. Pt notes some mild improvement with his R sided sx. Exam Vital Signs Vitals Vital Signs Date Temp Pulse Resp B/P (MAP) Pulse Ox O2 O2 Flow FiO2 Time Delivery Rate 10/09/18 98.5 82 19 170/98 98 08:17 (122) 10/09/18 Room Air 04:07 Intake and Output 10/08/18 10/08/18 10/09/18 1515:00 23:00 07:00 IntakeIntake Total 1305 ml 1175 ml BalanceBalance 1305 ml 1175 ml Exam PE: Gen Appearance: No Apparent Distress HEENT: Normocephalic Cardiovascular: Regular rate Lungs: Clear bilaterally Abdomen: Soft Extremities: Dry NE: The patient was alert and oriented. Language was normal. Fund of knowledge was normal. Pupils were equal and reactive to light. There was no afferent pupillary defect. Visual dietrich were limited in both eyes . Funduscopic examination was limited. Extra-ocular movements were full. Ptosis was absent. There was no nystagmus. Facial sensation was normal. Face was symmetric with normal strength. Hearing was intact. Palate movements were normal. Neck strength was normal. There was normal tongue bulk and speed of movement. Tone was normal. Muscle bulk was normal. I did not see fasciculations. Arms and legs were mildly weak on the R. Vibration sensation was normal. Temperature and pinprick sensation was normal. Rapid alternating movements were normal. There was no dysmetria. There was no intention tremor. Gait was deferred due to bedrest. Arm and leg reflexes were 2+ and symmetric. Bowling's sign was absent. Plantar responses were flexor. NERY LAZAR NP October 09, 2018 09:41
--- NOTE | 2018-10-09 10:41 | PN ---
Date/Time of Note Date/Time of Note DATE: 10/09/18 TIME: 10:38 Assessment/Plan VTE Prophylaxis Risk score (from Ns)>0 risk: 2 SCD applied (from [facility] [place]): No SCD contraindicated: other Pharmacological prophylaxis: heparin Lines/Catheters IV Catheter Type (from [facility]): Peripheral IV Urinary Cath still in place: No Assessment/Plan Hospital Course S: Patient had no acute events overnight. Awaiting cardiology consult for possible MICHAEL. Seen by neurology team this morning. O: VS- see below PHYSICAL EXAMINATION: GENERAL: lying in bed, answering questions appropriately, slightly obese, otherwise in no acute distress. HEENT: Left pupil is equal, round, reactive to light. Extraocular muscles are intact. The right pupil is opaque, nonreactive. NECK: Supple. No thyromegaly. LUNGS: Clear to auscultation bilaterally. CARDIOVASCULAR: S1, S2 heard. No murmurs, rubs or gallops. ABDOMEN: Soft, nontender, nondistended. Normal bowel sounds. No rebound or guarding. MUSCULOSKELETAL: No lower extremity edema bilaterally. NEUROLOGIC: No focal deficits. MRI brain: IMPRESSION: 1. An 8 mm focus of acute/recent infarct in the left thalamus. 2. No acute intracranial hemorrhage or mass. 3. Marked confluent nonspecific foci of white matter signal abnormality. Differential consideration includes chronic hypertensive encephalopathy, vasculopathy, CADASIL, microvascular ischemic disease, demyelinating disease, toxic /metabolic or infectious/inflammatory insults. ASSESSMENT AND PLAN: 43-year-old male with prior history of glaucoma and hypertension, who comes in with right-sided weakness symptoms that are resolved now and decreased vision left eye, rule out stroke versus transient ischemic attack. 1. Right-sided weakness symptoms and decreased left eye vision. Symptoms slowly improving; again patient found with positive CVA -specifically 8 mm focus found in left thalamus area. -Continue neuro checks every 4 hours and follow-up recommendations from PT, OT and speech therapy consults. - Continue high dose aspirin and statin. -Follow-up neurology and cardiology consults, specifically regarding hypercoagulable lab work-up and possible need for MICHAEL -also echocardiogram with bubble study ordered 2. hypertension: Blood pressure in the high normal range -We will reintroduce patient's home blood pressure medicine today, monitor 3. Deep venous thrombosis prophylaxis. Heparin subcutaneously. Result Diagram: 10/09/1845610/09/18456 Results 24hrs Laboratory Tests Test 10/08/18 11:38 10/08/18 16:58 10/08/18 17:56 10/08/18 22:01 Bedside Glucose 125 99 115 Erythrocyte 10 Sedimentation Rate HIV (1&2) Antibody NEGATIVE Test 10/09/18 00:16 10/09/18 04:57 10/09/18 05:47 10/09/18 07:43 Bedside Glucose 143 94 96 White Blood Count 10.5 Red Blood Count 5.27 Hemoglobin 14.9 Hematocrit 46.1 Mean Corpuscular 87.5 Volume Mean Corpuscular 28.3 L Hemoglobin Mean Corpuscular 32.3 Hemoglobin Concent Red Cell 12.5 Distribution Width Platelet Count 219 Mean Platelet Volume 11.4 H Immature 0.500 H Granulocytes % Neutrophils % 69.4 Lymphocytes % 18.3 Monocytes % 9.3 Eosinophils % 2.0 Basophils % 0.5 Nucleated Red Blood 0.0 Cells % Immature 0.050 H Granulocytes # Neutrophils # 7.3 Lymphocytes # 1.9 Monocytes # 1.0 H Eosinophils # 0.2 Basophils # 0.1 Nucleated Red Blood 0.0 Cells # Sodium Level 142 Potassium Level 4.1 Chloride Level 107 Carbon Dioxide Level 30 Anion Gap 5 Blood Urea Nitrogen 16 Creatinine 0.71 Est Glomerular > 60 Filtrat Rate mL/min Glucose Level 106 Calcium Level 9.0 Exam/Review of Systems Exam Vitals Vital Signs Date Temp Pulse Resp B/P (MAP) Pulse Ox O2 O2 Flow FiO2 Time Delivery Rate 10/09/18 98.5 82 19 170/98 98 08:17 (122) 10/09/18 Room Air 04:07 Intake and Output 10/08/18 10/08/18 10/09/18 1515:00 23:00 07:00 IntakeIntake Total 1305 ml 1175 ml BalanceBalance 1305 ml 1175 ml Results Results 24hrs Laboratory Tests Test 10/08/18 11:38 10/08/18 16:58 10/08/18 17:56 10/08/18 22:01 Bedside Glucose 125 99 115 Erythrocyte 10 Sedimentation Rate HIV (1&2) Antibody NEGATIVE Test 10/09/18 00:16 10/09/18 04:57 10/09/18 05:47 10/09/18 07:43 Bedside Glucose 143 94 96 White Blood Count 10.5 Red Blood Count 5.27 Hemoglobin 14.9 Hematocrit 46.1 Mean Corpuscular 87.5 Volume Mean Corpuscular 28.3 L Hemoglobin Mean Corpuscular 32.3 Hemoglobin Concent Red Cell 12.5 Distribution Width Platelet Count 219 Mean Platelet Volume 11.4 H Immature 0.500 H Granulocytes % Neutrophils % 69.4 Lymphocytes % 18.3 Monocytes % 9.3 Eosinophils % 2.0 Basophils % 0.5 Nucleated Red Blood 0.0 Cells % Immature 0.050 H Granulocytes # Neutrophils # 7.3 Lymphocytes # 1.9 Monocytes # 1.0 H Eosinophils # 0.2 Basophils # 0.1 Nucleated Red Blood 0.0 Cells # Sodium Level 142 Potassium Level 4.1 Chloride Level 107 Carbon Dioxide Level 30 Anion Gap 5 Blood Urea Nitrogen 16 Creatinine 0.71 Est Glomerular > 60 Filtrat Rate mL/min Glucose Level 106 Calcium Level 9.0 Medications Medication Current Medications IV Flush (NS 3 ml) 3 ml PER PROTOCOL IV ; Start 10/07/18 at 14:00 Ondansetron HCl (Zofran Inj) 4 mg Q6H PRN IV NAUSEA/VOMITING; Start 10/07/18 at 14:00 Acetaminophen (Tylenol Tab) 650 mg Q6H PRN PO .PAIN 1-3 OR TEMP Last administered on 10/08/18at 16:51; Admin Dose 650 MG; Start 10/07/18 at 14:00 Acetaminophen/ Hydrocodone Bitart (Benge (5/325)) 1 tab Q6H PRN PO .MOD PAIN 4- 6; Start 10/07/18 at 14:00 Morphine Sulfate (morphine) 2 mg Q4H PRN IV .SEVERE PAIN 7-10; Start 10/07/18 at 14:00 Docusate Sodium (Colace) 100 mg Q12H PRN PO .CONSTIPATION; Start 10/07/18 at 14:00 Magnesium Hydroxide (Milk Of Mag) 30 ml DAILY PRN PO .CONSTIPATION; Start 10/07/18 at 14:00 Heparin Sodium (Porcine) (Heparin (5000 Units/1ml)) 5,000 unit Q12 SC Last administered on 10/09/18at 08:03; Admin Dose 5,000 UNIT; Start 10/07/18 at 21:00 Sodium Chloride 1,000 ml @ 75 mls/hr [id number] IV Last administered on 10/08/18at 22:11; Admin Dose 75 MLS/HR; Start 10/07/18 at 13:46 Lorazepam (Ativan) 0.5 mg Q6H PRN IV ANXIETY; Start 10/07/18 at 14:00 Albuterol/ Ipratropium (Duoneb) 3 ml Q4H RESP THERAPY PRN HHN SHORTNESS OF BREATH; Start 10/07/18 at 14:00 Hydralazine HCl (Apresoline) 10 mg Q6H PRN IV ELEVATED BLOOD PRESSURE; Start 10/07/18 at 14:00 Nitroglycerin (Nitroglycerin (Sl Tab) 0.4 Mg) 1 tab Q5M PRN SL ANGINA; Start 10/07/18 at 14:00 Aspirin (Ecotrin) 325 mg DAILY PO Last administered on 10/09/18at 07:49; Admin Dose 325 MG; Start 10/08/18 at 09:00 Diagnostic Test (Pha) (Accu-Chek) 1 ea 02 XX Last administered on 10/09/18at 02:12; Admin Dose 1 EA; Start 10/08/18 at 02:00 Insulin Aspart (Novolog Insulin Pen) NOVOLOG *MILD* ALGORI... Q4 SC Last administered on 10/09/18at 00:34; Admin Dose 1 UNIT; Start 10/07/18 at 17:00 Atorvastatin Calcium (Lipitor) 20 mg HS PO Last administered on 10/08/18at 22:02; Admin Dose 20 MG; Start 10/08/18 at 09:00 Miscellaneous Information 1 ea NOTE XX ; Start 10/07/18 at 14:30 Glucose (Glutose) 15 gm Q15M PRN PO DECREASED GLUCOSE; Start 10/07/18 at 14:30 Glucose (Glutose) 22.5 gm Q15M PRN PO DECREASED GLUCOSE; Start 10/07/18 at 14:30 Dextrose (D50w Syringe) 25 ml Q15M PRN IV DECREASED GLUCOSE; Start 10/07/18 at 14:30 Dextrose (D50w Syringe) 50 ml Q15M PRN IV DECREASED GLUCOSE; Start 10/07/18 at 14:30 Glucagon (Glucagen) 1 mg Q15M PRN IM DECREASED GLUCOSE; Start 10/07/18 at 14:30 Glucose (Glutose) 15 gm Q15M PRN BUCCAL DECREASED GLUCOSE; Start 10/07/18 at 14:30 Dorzolamide/ Timolol (Cosopt Pf Eye Drops) 1 drop BID LEFT EYE Last administered on 10/09/18 07:49; Admin Dose 1 DROP; Start 10/08/18 at 22:00 Ciprofloxacin HCl (Ciloxan 0.3% Oph) 1 drop QID RIGHT EYE Last administered on 10/09/18 07:50; Admin Dose 1 DROP; Start 10/08/18 at 23:30 Latanoprost (Xalatan) 1 drop QHS LEFT EYE ; Start 10/09/18 at 21:00 Miscellaneous Information Patients own medicat... BID@10,16 XX Last administered on 10/09/18 07:50; Admin Dose 1 EA; Start 10/09/18 at 10:00 Brimonidine Tartrate (Alphagan P 0.15%) 1 drop TID LEFT EYE Last administered on 10/09/18 07:50; Admin Dose 1 DROP; Start 10/09/18 at 09:00 BRADLY MONROY October 09, 2018 10:41
--- NOTE | 2018-10-09 11:12 | CONS ---
Assessment/Plan Assessment/Plan Hospital Course (Demo Recall) Acute/subacute thalamic stroke hypertension morbid obesity rule out obstructive sleep apnea Dyslipidemia Elevated hemoglobin A1c consistent with diabetes Recommendations: Bubble study will be ordered to rule out answer atrial septal communication i.e. PFO ASD Blood pressure management and statins as per internal medicine. May need to give/allow for permissive hypertension for now We will monitor for any evidence of atrial fibrillation. However given normal LV function normal left atrial size and no evidence of atrial fibrillation the chance of finding any intracardiac thrombi that would explain the stroke would be very unlikely MICHAEL will be arranged by Dr. Baires Thursday or Thursday if still neurology feels that it is necessary after bubble study is done Thank you for his referral. Dr. Baires will follow-up on Thursday VAISHALI KELLY MD [facility] Consultation Date/Type/Reason Admit Date/Time October 08, 2018 at 09:32 Date of Consultation: October 09, 2018 Type of Consult Cardiology Reason for Consultation cva Requesting Provider: BRADLY MONROY Date/Time of Note DATE: 10/09/18 TIME: 11:06 Hx of Present Illness Interventional cardiology consultation note :( covering Dr. Mckee) Chief complaint: Right-sided numbness Reason for consult: Rule out intracardiac cause of stroke History of present illness: Thank you for this referral. This is a 43-year-old gentleman with some hypertension obesity who presented to emergency room because of right-sided numbness. Work-up has shown thalamic stroke. MICHAEL was recommended by neurology because of the stroke were kindly consulted. Patient denies any active chest pain or pressure to me denies any palpitation to me telemetry was reviewed since patient's admission which has been a couple of days already there has been no evidence of atrial fibrillation noted. Echocardiogram also done and showed normal LV systolic function. Allergies: Penicillin Medications were reviewed as per medical reconciliation sheet Family history: Mother with some sort of heart problem he does not know exactly which Social history: Non-smoker Past medical history: Hypertension obesity dyslipidemia right eye blindness glaucoma Review of system: Patient denies all others except for above-mentioned Past Medical History Home Meds Reported Medications Latanoprost (Xalatan) 2.5 Ml Drops, 1 DROP LEFT EYE QHS, #1 BOTTLE 10/08/18 Brimonidine Tartrate* (Alphagan P*) 0.1%-15 Ml Opht Drops, 1 DROP LEFT EYE TID, #1 EA 10/08/18 Dorzolamide/Timolol* (Dorzolamide/Timolol*) 10 Ml Drops, 1 DROP LEFT EYE BID, #1 EA 10/08/18 Lisinopril* (Lisinopril*) 20 Mg Tablet, 20 MG PO DAILY, #30 TAB 10/07/18 Medications Current Medications IV Flush (NS 3 ml) 3 ml PER PROTOCOL IV ; Start 10/07/18 at 14:00 Ondansetron HCl (Zofran Inj) 4 mg Q6H PRN IV NAUSEA/VOMITING; Start 10/07/18 at 14:00 Acetaminophen (Tylenol Tab) 650 mg Q6H PRN PO .PAIN 1-3 OR TEMP Last administered on 10/08/18at 16:51; Admin Dose 650 MG; Start 10/07/18 at 14:00 Acetaminophen/ Hydrocodone Bitart (Mcnabb (5/325)) 1 tab Q6H PRN PO .MOD PAIN 4- 6; Start 10/07/18 at 14:00 Morphine Sulfate (morphine) 2 mg Q4H PRN IV .SEVERE PAIN 7-10; Start 10/07/18 at 14:00 Docusate Sodium (Colace) 100 mg Q12H PRN PO .CONSTIPATION; Start 10/07/18 at 14:00 Magnesium Hydroxide (Milk Of Mag) 30 ml DAILY PRN PO .CONSTIPATION; Start 10/07/18 at 14:00 Heparin Sodium (Porcine) (Heparin (5000 Units/1ml)) 5,000 unit Q12 SC Last administered on 10/09/18at 08:03; Admin Dose 5,000 UNIT; Start 10/07/18 at 21:00 Sodium Chloride 1,000 ml @ 75 mls/hr [id number] IV Last administered on 10/08/18at 22:11; Admin Dose 75 MLS/HR; Start 10/07/18 at 13:46 Lorazepam (Ativan) 0.5 mg Q6H PRN IV ANXIETY; Start 10/07/18 at 14:00 Albuterol/ Ipratropium (Duoneb) 3 ml Q4H RESP THERAPY PRN HHN SHORTNESS OF BREATH; Start 10/07/18 at 14:00 Hydralazine HCl (Apresoline) 10 mg Q6H PRN IV ELEVATED BLOOD PRESSURE; Start 10/07/18 at 14:00 Nitroglycerin (Nitroglycerin (Sl Tab) 0.4 Mg) 1 tab Q5M PRN SL ANGINA; Start 10/07/18 at 14:00 Aspirin (Ecotrin) 325 mg DAILY PO Last administered on 10/09/18at 07:49; Admin Dose 325 MG; Start 10/08/18 at 09:00 Diagnostic Test (Pha) (Accu-Chek) 1 ea 02 XX Last administered on 10/09/18at 02:12; Admin Dose 1 EA; Start 10/08/18 at 02:00 Atorvastatin Calcium (Lipitor) 20 mg HS PO Last administered on 10/08/18at 22:02; Admin Dose 20 MG; Start 10/08/18 at 09:00 Miscellaneous Information 1 ea NOTE XX ; Start 10/07/18 at 14:30 Glucose (Glutose) 15 gm Q15M PRN PO DECREASED GLUCOSE; Start 10/07/18 at 14:30 Glucose (Glutose) 22.5 gm Q15M PRN PO DECREASED GLUCOSE; Start 10/07/18 at 14:30 Dextrose (D50w Syringe) 25 ml Q15M PRN IV DECREASED GLUCOSE; Start 10/07/18 at 14:30 Dextrose (D50w Syringe) 50 ml Q15M PRN IV DECREASED GLUCOSE; Start 10/07/18 at 14:30 Glucagon (Glucagen) 1 mg Q15M PRN IM DECREASED GLUCOSE; Start 10/07/18 at 14:30 Glucose (Glutose) 15 gm Q15M PRN BUCCAL DECREASED GLUCOSE; Start 10/07/18 at 14:30 Dorzolamide/ Timolol (Cosopt Pf Eye Drops) 1 drop BID LEFT EYE Last administered on 10/09/18at 07:49; Admin Dose 1 DROP; Start 10/08/18 at 22:00 Ciprofloxacin HCl (Ciloxan 0.3% Oph) 1 drop QID RIGHT EYE Last administered on 10/09/18at 07:50; Admin Dose 1 DROP; Start 10/08/18 at 23:30 Latanoprost (Xalatan) 1 drop QHS LEFT EYE ; Start 10/09/18 at 21:00 Miscellaneous Information Patients own medicat... BID@ XX Last administered on 10/09/18at 07:50; Admin Dose 1 EA; Start 10/09/18 at 10:00 Brimonidine Tartrate (Alphagan P 0.15%) 1 drop TID LEFT EYE Last administered on 10/09/18at 07:50; Admin Dose 1 DROP; Start 10/09/18 at 09:00 Lisinopril (Zestril) 20 mg DAILY PO ; Start 10/09/18 at 11:00 Insulin Aspart (Novolog Insulin Pen) NOVOLOG *MILD* ALGORITHM WITH MEALS BEDTIME SC ; Start 10/09/18 at 12:00 Allergies: Coded Allergies: Penicillins (Verified Allergy, Intermediate, SEVERE RASHES, 10/07/18) Social History Smoking Status: Never smoker Exam/Review of Systems Vital Signs Vitals Vital Signs Date Temp Pulse Resp B/P (MAP) Pulse Ox O2 O2 Flow FiO2 Time Delivery Rate 10/09/18 98.5 82 19 170/98 98 08:17 (122) 10/09/18 Room Air 04:07 Intake and Output 10/08/18 10/08/18 10/09/18 1414:59 22:59 06:59 IntakeIntake Total 1305 ml 1175 ml BalanceBalance 1305 ml 1175 ml Exam Exam General: This gentleman in no acute distress HEENT: NC/AT. NECK: NO JVD. no stridor. CV: RRR. systolic murmur; no gallop or rubs. PULM: no wheezing or rhonchi. GI: SOFT, NT, ND, no rebound or guarding Extremity: trace B/L LE edema. no clubbing. neuro: awake and alert, OX3. Psych: calm and pleasant rectal: deferred : normal EKG showed normal sinus rhythm low voltage MRI of the brain shows: 1. An 8 mm focus of acute/recent infarct in the left thalamus. 2. No acute intracranial hemorrhage or mass. 3. Marked confluent nonspecific foci of white matter signal abnormality. Differential consideration includes chronic hypertensive encephalopathy, vasculopathy, CADASIL, microvascular ischemic disease, demyelinating disease, toxic /metabolic or infectious/inflammatory insults. Echocardiogram read by Dr. Baires shows Normal left ventricular systolic function. Normal left ventricular cavity size. Normal left ventricular wall thickness. Ejection fraction is visually estimated at 65 %. Tissue Doppler/Mitral Doppler indices are consistent with impaired relaxation (Stage I diastolic dysfunction). Normal right ventricular size. Normal right ventricular systolic function. The left atrium is normal in size. The right atrium is normal in size. No significant valvular stenosis or regurgitation seen. Normal pericardium with no significant pericardial effusion. Labs Result Diagram: 10/09/18 0457 10/09/18 0457 Results 24hrs Laboratory Tests Test 10/08/18 11:38 10/08/18 16:58 10/08/18 17:56 10/08/18 22:01 Bedside Glucose 125 99 115 Erythrocyte 10 Sedimentation Rate HIV (1&2) Antibody NEGATIVE Test 10/09/18 00:16 10/09/18 04:57 10/09/18 05:47 10/09/18 07:43 Bedside Glucose 143 94 96 White Blood Count 10.5 Red Blood Count 5.27 Hemoglobin 14.9 Hematocrit 46.1 Mean Corpuscular 87.5 Volume Mean Corpuscular 28.3 L Hemoglobin Mean Corpuscular 32.3 Hemoglobin Concent Red Cell 12.5 Distribution Width Platelet Count 219 Mean Platelet Volume 11.4 H Immature 0.500 H Granulocytes % Neutrophils % 69.4 Lymphocytes % 18.3 Monocytes % 9.3 Eosinophils % 2.0 Basophils % 0.5 Nucleated Red Blood 0.0 Cells % Immature 0.050 H Granulocytes # Neutrophils # 7.3 Lymphocytes # 1.9 Monocytes # 1.0 H Eosinophils # 0.2 Basophils # 0.1 Nucleated Red Blood 0.0 Cells # Sodium Level 142 Potassium Level 4.1 Chloride Level 107 Carbon Dioxide Level 30 Anion Gap 5 Blood Urea Nitrogen 16 Creatinine 0.71 Est Glomerular > 60 Filtrat Rate mL/min Glucose Level 106 Calcium Level 9.0 Medications Medications Current Medications IV Flush (NS 3 ml) 3 ml PER PROTOCOL IV ; Start 10/07/18 at 14:00 Ondansetron HCl (Zofran Inj) 4 mg Q6H PRN IV NAUSEA/VOMITING; Start 10/07/18 at 14:00 Acetaminophen (Tylenol Tab) 650 mg Q6H PRN PO .PAIN 1-3 OR TEMP Last administered on 10/08/18at 16:51; Admin Dose 650 MG; Start 10/07/18 at 14:00 Acetaminophen/ Hydrocodone Bitart (Mcnabb (5/325)) 1 tab Q6H PRN PO .MOD PAIN 4- 6; Start 10/07/18 at 14:00 Morphine Sulfate (morphine) 2 mg Q4H PRN IV .SEVERE PAIN 7-10; Start 10/07/18 at 14:00 Docusate Sodium (Colace) 100 mg Q12H PRN PO .CONSTIPATION; Start 10/07/18 at 14:00 Magnesium Hydroxide (Milk Of Mag) 30 ml DAILY PRN PO .CONSTIPATION; Start 10/07/18 at 14:00 Heparin Sodium (Porcine) (Heparin (5000 Units/1ml)) 5,000 unit Q12 SC Last administered on 10/09/18at 08:03; Admin Dose 5,000 UNIT; Start 10/07/18 at 21:00 Sodium Chloride 1,000 ml @ 75 mls/hr [id number] IV Last administered on 10/08/18at 22:11; Admin Dose 75 MLS/HR; Start 10/07/18 at 13:46 Lorazepam (Ativan) 0.5 mg Q6H PRN IV ANXIETY; Start 10/07/18 at 14:00 Albuterol/ Ipratropium (Duoneb) 3 ml Q4H RESP THERAPY PRN HHN SHORTNESS OF KANDIS TH; Start 10/07/18 at 14:00 Hydralazine HCl (Apresoline) 10 mg Q6H PRN IV ELEVATED BLOOD PRESSURE; Start 10/07/18 at 14:00 Nitroglycerin (Nitroglycerin (Sl Tab) 0.4 Mg) 1 tab Q5M PRN SL ANGINA; Start 10/07/18 at 14:00 Aspirin (Ecotrin) 325 mg DAILY PO Last administered on 10/09/18at 07:49; Admin Dose 325 MG; Start 10/08/18 at 09:00 Diagnostic Test (Pha) (Accu-Chek) 1 ea 02 XX Last administered on 10/09/18at 02:12; Admin Dose 1 EA; Start 10/08/18 at 02:00 Atorvastatin Calcium (Lipitor) 20 mg HS PO Last administered on 10/08/18at 22:02; Admin Dose 20 MG; Start 10/08/18 at 09:00 Miscellaneous Information 1 ea NOTE XX ; Start 10/07/18 at 14:30 Glucose (Glutose) 15 gm Q15M PRN PO DECREASED GLUCOSE; Start 10/07/18 at 14:30 Glucose (Glutose) 22.5 gm Q15M PRN PO DECREASED GLUCOSE; Start 10/07/18 at 14:30 Dextrose (D50w Syringe) 25 ml Q15M PRN IV DECREASED GLUCOSE; Start 10/07/18 at 14:30 Dextrose (D50w Syringe) 50 ml Q15M PRN IV DECREASED GLUCOSE; Start 10/07/18 at 14:30 Glucagon (Glucagen) 1 mg Q15M PRN IM DECREASED GLUCOSE; Start 10/07/18 at 14:30 Glucose (Glutose) 15 gm Q15M PRN BUCCAL DECREASED GLUCOSE; Start 10/07/18 at 14:30 Dorzolamide/ Timolol (Cosopt Pf Eye Drops) 1 drop BID LEFT EYE Last administered on 10/09/18at 07:49; Admin Dose 1 DROP; Start 10/08/18 at 22:00 Ciprofloxacin HCl (Ciloxan 0.3% Oph) 1 drop QID RIGHT EYE Last administered on 10/09/18at 07:50; Admin Dose 1 DROP; Start 10/08/18 at 23:30 Latanoprost (Xalatan) 1 drop QHS LEFT EYE ; Start 10/09/18 at 21:00 Miscellaneous Information Patients own medicat... BID@10,16 XX Last administered on 10/09/18at 07:50; Admin Dose 1 EA; Start 10/09/18 at 10:00 Brimonidine Tartrate (Alphagan P 0.15%) 1 drop TID LEFT EYE Last administered on 10/09/18at 07:50; Admin Dose 1 DROP; Start 10/09/18 at 09:00 Lisinopril (Zestril) 20 mg DAILY PO ; Start 10/09/18 at 11:00 Insulin Aspart (Novolog Insulin Pen) NOVOLOG *MILD* ALGORITHM WITH MEALS BEDTIME SC ; Start 10/09/18 at 12:00 VAISHALI KELLY MD October 09, 2018 11:12
[2018-10-09] MEDS: LISINOPRIL 20 MG TAB PO SCH (12:06)
[2018-10-09] MEDS: ATORVASTATIN 20 MG TAB PO SCH (20:51)
[2018-10-09] MEDS: LATANOPROST 0.005% 2.5 ML OPH LEFT EYE SCH (21:03)
[2018-10-10] VITALS (9 sets, daily range): BP systolic 129–168; BP diastolic 85–104; PULSE 65–109; RESP 17–19
[2018-10-10] MEDS: ACCU-CHEK XX SCH (02:00)
[2018-10-10] MEDS: INSULIN ASPART [NOVOLOG] 3 ML PEN SC SCH ×4 (07:19→21:00)
[2018-10-10] MEDS: LISINOPRIL 20 MG TAB PO SCH (08:03)
[2018-10-10] MEDS: ASPIRIN (EC) 325 MG TAB PO SCH (08:03)
[2018-10-10] MEDS: BRIMONIDINE 0.15% 5 ML OPH LEFT EYE SCH ×3 (08:03→21:14)
[2018-10-10] MEDS: DORZOLAMIDE/TIMOLOL/PF 0.2 ML DROPERETTE LEFT EYE SCH ×2 (08:04→21:13)
[2018-10-10] MEDS: CIPROFLOXACIN 0.3% 2.5 ML OPH RIGHT EYE SCH ×4 (08:04→21:14)
[2018-10-10] MEDS: HEPARIN 5,000 UNIT/1 ML VIAL SC SCH ×2 (08:08→21:09)
--- NOTE | 2018-10-10 11:13 | CONS ---
Assessment/Plan Assessment/Plan Hospital Course 43 yo M with hx of HTN, obesity who presents for evaluation of R hemisensory loss, R arm/leg weakness. MRI brain confirmed an acute L thalamic infarct... for which neurology is consulted. CTA H/N is unremarkable Echo is unremarkable UDS neg, LDL 40, ESR 10, HIV neg P: Await hypercoag panel, RPR Await echo with bubble study Recommend MICHAEL to further evaluate a cardioembolic etiology Cont ASA/Lipitor for secondary stroke prevention BP and other medical management per primary PT/OT as necessary Will follow clinically, to recommend neurologic studies, as necessary Consultation Date/Type/Reason Admit Date/Time October 08, 2018 at 09:32 Type of Consult Neurology Reason for Consultation stroke Requesting Provider: BRADLY MONROY Date/Time of Note DATE: 10/10/18 TIME: 11:13 24 HR Interval Summary Free Text/Dictation Continues acute care. Exam Vital Signs Vitals Vital Signs Date Temp Pulse Resp B/P (MAP) Pulse Ox O2 O2 Flow FiO2 Time Delivery Rate 10/10/18 72 19 142/94 96 Room Air 08:30 (110) 10/10/18 98.2 07:30 Intake and Output 10/09/18 10/09/18 10/10/18 1515:00 23:00 07:00 IntakeIntake Total 1200 ml BalanceBalance 1200 ml Exam PE: Gen Appearance: No Apparent Distress HEENT: Normocephalic Cardiovascular: Regular rate Lungs: Clear bilaterally Abdomen: Soft Extremities: Dry NE: The patient was alert and oriented. Language was normal. Fund of knowledge was normal. Pupils were equal and reactive to light. There was no afferent pupillary defect. Visual dietrich were limited in both eyes . Funduscopic examination was limited. Extra-ocular movements were full. Ptosis was absent. There was no nystagmus. Facial sensation was normal. Face was symmetric with normal strength. Hearing was intact. Palate movements were normal. Neck strength was normal. There was normal tongue bulk and speed of movement. Tone was normal. Muscle bulk was normal. I did not see fasciculations. Arms and legs were symmetric. Vibration sensation was normal. Temperature and pinprick sensation was normal. Rapid alternating movements were normal. There was no dysmetria. There was no intention tremor. Gait was deferred due to bedrest. Arm and leg reflexes were 2+ and symmetric. Bowling's sign was absent. Plantar responses were flexor. NERY LAZAR NP October 10, 2018 11:13
--- NOTE | 2018-10-10 13:34 | RADRPT ---
Echocardiogram Report Patient Name: SANDER GREENEatient ID: [id number] : 1975 (43y 8m)Study Date: 10/09/2018 1:25:41 PM Gender: MAccession #: [id number] Tech: MAC Location: Ref.Physician: STEVE KAY Height(Cm): BSA: Weight(Kg): Quality: GoodAccount #: Procedures: Echocardiographic Report: Transthoracic echocardiogram examination: Bubble exam only. Indications: Cerebrovascular Accident. Findings: Atrial Septum: Agitated saline was injected intravenously for microbubble contrast study. No right to left shunt was identified with and with out valsalva maneuver, note the third set of images was done with Valsalva. Conclusions: Agitated saline was injected intravenously for microbubble contrast study. No right to left shunt was identified with and with out valsalva maneuver, note the third set of images was done with Valsalva. Electronically Signed By: Steve Kay 2018-10-10 13:33:39 PDT
--- NOTE | 2018-10-10 13:43 | CONS ---
Consult Date/Type/Reason Admit Date/Time October 08, 2018 at 09:32 Initial Consult Date 10/09/18 Type of Consultation: cv Requesting Provider: BRADLY MONROY Date/Time of Note DATE: 10/10/18 TIME: 13:40 Subjective Cardiology follow-up progress note Subjective: Discussed with the staff telemetry was reviewed patient remains sinus rhythm with no episode of atrial fibrillation No chest pain or pressure no palpitation o General: This gentleman in no acute distress HEENT: NC/AT. NECK: NO JVD. no stridor. CV: RRR. systolic murmur; no gallop or rubs. PULM: no wheezing or rhonchi. GI: SOFT, NT, ND, no rebound or guarding Extremity: trace B/L LE edema. no clubbing. neuro: awake and alert, OX3. Psych: calm and pleasant rectal: deferred : normal EKG showed normal sinus rhythm low voltage MRI of the brain shows: 1. An 8 mm focus of acute/recent infarct in the left thalamus. 2. No acute intracranial hemorrhage or mass. 3. Marked confluent nonspecific foci of white matter signal abnormality. Differential consideration includes chronic hypertensive encephalopathy, vasculopathy, CADASIL, microvascular ischemic disease, demyelinating disease, toxic /metabolic or infectious/inflammatory insults. Echocardiogram read by Dr. Baires shows Normal left ventricular systolic function. Normal left ventricular cavity size. Normal left ventricular wall thickness. Ejection fraction is visually estimated at 65 %. Tissue Doppler/Mitral Doppler indices are consistent with impaired relaxation (Stage I diastolic dysfunction). Normal right ventricular size. Normal right ventricular systolic function. The left atrium is normal in size. The right atrium is normal in size. No significant valvular stenosis or regurgitation seen. Normal pericardium with no significant pericardial effusion. Echocardiogram with bubble study was personally reviewed showed no evidence of intracardiac communication by bubble study Objective Vitals Vital Signs Date Temp Pulse Resp B/P (MAP) Pulse Ox O2 O2 Flow FiO2 Time Delivery Rate 10/10/18 98.1 95 18 168/104 97 12:00 (125) 10/10/18 Room Air 08:30 Intake and Output 10/09/18 10/09/18 10/10/18 1515:00 23:00 07:00 IntakeIntake Total 1200 ml BalanceBalance 1200 ml Results/Medications Result Diagram: 10/10/18 0541 10/10/18 0541 Results 24 hrs Laboratory Tests Test 10/09/18 16:55 10/09/18 20:55 10/10/18 05:41 10/10/18 07:19 Bedside Glucose 109 127 97 White Blood Count 12.3 H Red Blood Count 5.34 Hemoglobin 15.2 Hematocrit 46.9 Mean Corpuscular 87.8 Volume Mean Corpuscular 28.5 L Hemoglobin Mean Corpuscular 32.4 Hemoglobin Concent Red Cell 12.6 Distribution Width Platelet Count 230 Mean Platelet Volume 11.6 H Immature 0.400 Granulocytes % Neutrophils % 71.2 Lymphocytes % 16.2 Monocytes % 9.6 Eosinophils % 2.2 Basophils % 0.4 Nucleated Red Blood 0.0 Cells % Immature 0.050 H Granulocytes # Neutrophils # 8.8 H Lymphocytes # 2.0 Monocytes # 1.2 H Eosinophils # 0.3 Basophils # 0.1 Nucleated Red Blood 0.0 Cells # Sodium Level 142 Potassium Level 4.2 Chloride Level 108 Carbon Dioxide Level 29 Anion Gap 5 Blood Urea Nitrogen 18 Creatinine 0.72 Est Glomerular > 60 Filtrat Rate mL/min Glucose Level 99 Calcium Level 9.1 Test 10/10/18 12:06 Bedside Glucose 126 Home Meds Reported Medications Latanoprost (Xalatan) 2.5 Ml Drops, 1 DROP LEFT EYE QHS, #1 BOTTLE 10/08/18 Brimonidine Tartrate* (Alphagan P*) 0.1%-15 Ml Opht Drops, 1 DROP LEFT EYE TID, #1 EA 10/08/18 Dorzolamide/Timolol* (Dorzolamide/Timolol*) 10 Ml Drops, 1 DROP LEFT EYE BID, #1 EA 10/08/18 Lisinopril* (Lisinopril*) 20 Mg Tablet, 20 MG PO DAILY, #30 TAB 10/07/18 Medications Current Medications IV Flush (NS 3 ml) 3 ml PER PROTOCOL IV ; Start 10/07/18 at 14:00 Ondansetron HCl (Zofran Inj) 4 mg Q6H PRN IV NAUSEA/VOMITING; Start 10/07/18 at 14:00 Acetaminophen (Tylenol Tab) 650 mg Q6H PRN PO .PAIN 1-3 OR TEMP Last administered on 10/08/18at 16:51; Admin Dose 650 MG; Start 10/07/18 at 14:00 Acetaminophen/ Hydrocodone Bitart ([place] (5/325)) 1 tab Q6H PRN PO .MOD PAIN 4- 6 Last administered on 10/09/18at 12:05; Admin Dose 1 TAB; Start 10/07/18 at 14:00 Morphine Sulfate (morphine) 2 mg Q4H PRN IV .SEVERE PAIN 7-10; Start 10/07/18 at 14:00 Docusate Sodium (Colace) 100 mg Q12H PRN PO .CONSTIPATION; Start 10/07/18 at 14:00 Magnesium Hydroxide (Milk Of Mag) 30 ml DAILY PRN PO .CONSTIPATION; Start 10/07/18 at 14:00 Heparin Sodium (Porcine) (Heparin (5000 Units/1ml)) 5,000 unit Q12 SC Last administered on 10/10/18at 08:08; Admin Dose 5,000 UNIT; Start 10/07/18 at 21:00 Lorazepam (Ativan) 0.5 mg Q6H PRN IV ANXIETY; Start 10/07/18 at 14:00 Albuterol/ Ipratropium (Duoneb) 3 ml Q4H RESP THERAPY PRN HHN SHORTNESS OF BREATH; Start 10/07/18 at 14:00 Hydralazine HCl (Apresoline) 10 mg Q6H PRN IV ELEVATED BLOOD PRESSURE; Start 10/07/18 at 14:00 Nitroglycerin (Nitroglycerin (Sl Tab) 0.4 Mg) 1 tab Q5M PRN SL ANGINA Last administered on 10/10/18at 08:43; Admin Dose 1 TAB; Start 10/07/18 at 14:00 Aspirin (Ecotrin) 325 mg DAILY PO Last administered on 10/10/18at 08:03; Admin Dose 325 MG; Start 10/08/18 at 09:00 Diagnostic Test (Pha) (Accu-Chek) 1 ea 02 XX Last administered on 10/09/18at 02:12; Admin Dose 1 EA; Start 10/08/18 at 02:00 Atorvastatin Calcium (Lipitor) 20 mg HS PO Last administered on 10/09/18at 20:51; Admin Dose 20 MG; Start 10/08/18 at 09:00 Miscellaneous Information 1 ea NOTE XX ; Start 10/07/18 at 14:30 Glucose (Glutose) 15 gm Q15M PRN PO DECREASED GLUCOSE; Start 10/07/18 at 14:30 Glucose (Glutose) 22.5 gm Q15M PRN PO DECREASED GLUCOSE; Start 10/07/18 at 14:30 Dextrose (D50w Syringe) 25 ml Q15M PRN IV DECREASED GLUCOSE; Start 10/07/18 at 14:30 Dextrose (D50w Syringe) 50 ml Q15M PRN IV DECREASED GLUCOSE; Start 10/07/18 at 14:30 Glucagon (Glucagen) 1 mg Q15M PRN IM DECREASED GLUCOSE; Start 10/07/18 at 14:30 Glucose (Glutose) 15 gm Q15M PRN BUCCAL DECREASED GLUCOSE; Start 10/07/18 at 14:30 Dorzolamide/ Timolol (Cosopt Pf Eye Drops) 1 drop BID LEFT EYE Last administered on 10/10/18at 08:04; Admin Dose 1 DROP; Start 10/08/18 at 22:00 Ciprofloxacin HCl (Ciloxan 0.3% Oph) 1 drop QID RIGHT EYE Last administered on 10/10/18at 12:05; Admin Dose 1 DROP; Start 10/08/18 at 23:30 Latanoprost (Xalatan) 1 drop QHS LEFT EYE Last administered on 10/09/18at 21:03; Admin Dose 1 DROP; Start 10/09/18 at 21:00 Miscellaneous Information Patients own medicat... BID@10,16 XX Last administered on 10/10/18at 08:08; Admin Dose 1 EA; Start 10/09/18 at 10:00 Brimonidine Tartrate (Alphagan P 0.15%) 1 drop TID LEFT EYE Last administered on 10/10/18at 12:05; Admin Dose 1 DROP; Start 10/09/18 at 09:00 Lisinopril (Zestril) 20 mg DAILY PO Last administered on 10/10/18 08:03; Admin Dose 20 MG; Start 10/09/18 at 11:00 Insulin Aspart (Novolog Insulin Pen) NOVOLOG *MILD* ALGORITHM WITH MEALS BEDTIME SC ; Start 10/09/18 at 12:00 Assessment/Plan Hospital Course (Demo Recall) Acute/subacute thalamic stroke hypertension morbid obesity rule out obstructive sleep apnea Dyslipidemia Elevated hemoglobin A1c consistent with diabetes Recommendations: Bubble study did not show any evidence of atrial septal communication i.e. PFO ASD Blood pressure management and statins as per internal medicine. May need to give/allow for permissive hypertension for now We will monitor for any evidence of atrial fibrillation. However given normal LV function normal left atrial size and no evidence of atrial fibrillation the chance of finding any intracardiac thrombi that would explain the stroke would be very unlikely MICHAEL will be arranged by Dr. Baires Thursday or Thursday if still neurology feels that it is necessary after bubble study is available to them Thank you for his referral. Dr. Baires will follow-up on Thursday VAISHALI KELLY MD [facility] VAISHALI KELLY MD October 10, 2018 13:42
--- NOTE | 2018-10-10 15:07 | PN ---
Date/Time of Note Date/Time of Note DATE: 10/10/18 TIME: 15:05 Assessment/Plan VTE Prophylaxis Risk score (from Ns)>0 risk: 2 SCD applied (from Ns): No SCD contraindicated: other Pharmacological prophylaxis: heparin Lines/Catheters [facility] [place] [facility] Urinary Cath still in place: No Assessment/Plan Hospital Course S: Patient had no acute events overnight seen by neurology and cardiology teams this morning. Echocardiogram with bubble study results discussed unofficially with cardiology team as well. O: VS- see below PHYSICAL EXAMINATION: GENERAL: lying in bed, answering questions appropriately, slightly obese, otherwise in no acute distress. HEENT: Left pupil is equal, round, reactive to light. Extraocular muscles are intact. The right pupil is opaque, nonreactive. NECK: Supple. No thyromegaly. LUNGS: Clear to auscultation bilaterally. CARDIOVASCULAR: S1, S2 heard. No murmurs, rubs or gallops. ABDOMEN: Soft, nontender, nondistended. Normal bowel sounds. No rebound or guarding. MUSCULOSKELETAL: No lower extremity edema bilaterally. NEUROLOGIC: No focal deficits. MRI brain: IMPRESSION: 1. An 8 mm focus of acute/recent infarct in the left thalamus. 2. No acute intracranial hemorrhage or mass. 3. Marked confluent nonspecific foci of white matter signal abnormality. Differential consideration includes chronic hypertensive encephalopathy, vasculopathy, CADASIL, microvascular ischemic disease, demyelinating disease, toxic /metabolic or infectious/inflammatory insults. 2D echo with bubble study: Conclusions: Agitated saline was injected intravenously for microbubble contrast study. No right to left shunt was identified with and with out valsalva maneuver, note the third set of images was done with Valsalva. ASSESSMENT AND PLAN: 43-year-old male with prior history of glaucoma and hypertension, who comes in with right-sided weakness symptoms that are resolved now and decreased vision left eye, rule out stroke versus transient ischemic attack. 1. Right-sided weakness symptoms and decreased left eye vision. Symptoms slowly improving; again patient found with positive CVA -specifically 8 mm focus found in left thalamus area. -Continue neuro checks every 4 hours and follow-up recommendations from PT, OT and speech therapy consults. - Continue high dose aspirin and statin. -Follow-up neurology and cardiology consults, specifically regarding hypercoa gulable lab work-up and MICHAEL -scheduled to be performed in the next 24 to 48 hours. 2. hypertension: Blood pressure still slightly in the high normal range -Monitor, continue home blood pressure medicine today, monitor 3. Deep venous thrombosis prophylaxis. Heparin subcutaneously. Result Diagram: 10/10/18 0541 10/10/18 0541 Results 24hrs Laboratory Tests Test 10/09/18 16:55 10/09/18 20:55 10/10/18 05:41 10/10/18 07:19 Bedside Glucose 109 127 97 White Blood Count 12.3 H Red Blood Count 5.34 Hemoglobin 15.2 Hematocrit 46.9 Mean Corpuscular 87.8 Volume Mean Corpuscular 28.5 L Hemoglobin Mean Corpuscular 32.4 Hemoglobin Concent Red Cell 12.6 Distribution Width Platelet Count 230 Mean Platelet Volume 11.6 H Immature 0.400 Granulocytes % Neutrophils % 71.2 Lymphocytes % 16.2 Monocytes % 9.6 Eosinophils % 2.2 Basophils % 0.4 Nucleated Red Blood 0.0 Cells % Immature 0.050 H Granulocytes # Neutrophils # 8.8 H Lymphocytes # 2.0 Monocytes # 1.2 H Eosinophils # 0.3 Basophils # 0.1 Nucleated Red Blood 0.0 Cells # Sodium Level 142 Potassium Level 4.2 Chloride Level 108 Carbon Dioxide Level 29 Anion Gap 5 Blood Urea Nitrogen 18 Creatinine 0.72 Est Glomerular > 60 Filtrat Rate mL/min Glucose Level 99 Calcium Level 9.1 Test 10/10/18 12:06 Bedside Glucose 126 Exam/Review of Systems Exam Vitals Vital Signs Date Temp Pulse Resp B/P (MAP) Pulse Ox O2 O2 Flow FiO2 Time Delivery Rate 10/10/18 98.1 95 18 168/104 97 12:00 (125) 10/10/18 Room Air 08:30 Intake and Output 10/09/18 10/09/18 10/10/18 1515:00 23:00 07:00 IntakeIntake Total 1200 ml BalanceBalance 1200 ml Results Results 24hrs Laboratory Tests Test 10/09/18 16:55 10/09/18 20:55 10/10/18 05:41 10/10/18 07:19 Bedside Glucose 109 127 97 White Blood Count 12.3 H Red Blood Count 5.34 Hemoglobin 15.2 Hematocrit 46.9 Mean Corpuscular 87.8 Volume Mean Corpuscular 28.5 L Hemoglobin Mean Corpuscular 32.4 Hemoglobin Concent Red Cell 12.6 Distribution Width Platelet Count 230 Mean Platelet Volume 11.6 H Immature 0.400 Granulocytes % Neutrophils % 71.2 Lymphocytes % 16.2 Monocytes % 9.6 Eosinophils % 2.2 Basophils % 0.4 Nucleated Red Blood 0.0 Cells % Immature 0.050 H Granulocytes # Neutrophils # 8.8 H Lymphocytes # 2.0 Monocytes # 1.2 H Eosinophils # 0.3 Basophils # 0.1 Nucleated Red Blood 0.0 Cells # Sodium Level 142 Potassium Level 4.2 Chloride Level 108 Carbon Dioxide Level 29 Anion Gap 5 Blood Urea Nitrogen 18 Creatinine 0.72 Est Glomerular > 60 Filtrat Rate mL/min Glucose Level 99 Calcium Level 9.1 Test 10/10/18 12:06 Bedside Glucose 126 Medications Medication Current Medications IV Flush (NS 3 ml) 3 ml PER PROTOCOL IV ; Start 10/07/18 at 14:00 Ondansetron HCl (Zofran Inj) 4 mg Q6H PRN IV NAUSEA/VOMITING; Start 10/07/18 at 14:00 Acetaminophen (Tylenol Tab) 650 mg Q6H PRN PO .PAIN 1-3 OR TEMP Last administered on 10/08/18at 16:51; Admin Dose 650 MG; Start 10/07/18 at 14:00 Acetaminophen/ Hydrocodone Bitart ([employer] (5/325)) 1 tab Q6H PRN PO .MOD PAIN 4- 6 Last administered on 10/09/18at 12:05; Admin Dose 1 TAB; Start 10/07/18 at 14:00 Morphine Sulfate (morphine) 2 mg Q4H PRN IV .SEVERE PAIN 7-10; Start 10/07/18 at 14:00 Docusate Sodium (Colace) 100 mg Q12H PRN PO .CONSTIPATION; Start 10/07/18 at 14:00 Magnesium Hydroxide (Milk Of Mag) 30 ml DAILY PRN PO .CONSTIPATION; Start 10/07/18 at 14:00 Heparin Sodium (Porcine) (Heparin (5000 Units/1ml)) 5,000 unit Q12 SC Last administered on 10/10/18at 08:08; Admin Dose 5,000 UNIT; Start 10/07/18 at 21:00 Lorazepam (Ativan) 0.5 mg Q6H PRN IV ANXIETY; Start 10/07/18 at 14:00 Albuterol/ Ipratropium (Duoneb) 3 ml Q4H RESP THERAPY PRN HHN SHORTNESS OF BREATH; Start 10/07/18 at 14:00 Hydralazine HCl (Apresoline) 10 mg Q6H PRN IV ELEVATED BLOOD PRESSURE; Start 10/07/18 at 14:00 Nitroglycerin (Nitroglycerin (Sl Tab) 0.4 Mg) 1 tab Q5M PRN SL ANGINA Last administered on 10/10/18at 08:43; Admin Dose 1 TAB; Start 10/07/18 at 14:00 Aspirin (Ecotrin) 325 mg DAILY PO Last administered on 10/10/18at 08:03; Admin Dose 325 MG; Start 10/08/18 at 09:00 Diagnostic Test (Pha) (Accu-Chek) 1 ea 02 XX Last administered on 10/09/18at 02:12; Admin Dose 1 EA; Start 10/08/18 at 02:00 Atorvastatin Calcium (Lipitor) 20 mg HS PO Last administered on 10/09/18at 20:51; Admin Dose 20 MG; Start 10/08/18 at 09:00 Miscellaneous Information 1 ea NOTE XX ; Start 10/07/18 at 14:30 Glucose (Glutose) 15 gm Q15M PRN PO DECREASED GLUCOSE; Start 10/07/18 at 14:30 Glucose (Glutose) 22.5 gm Q15M PRN PO DECREASED GLUCOSE; Start 10/07/18 at 14:30 Dextrose (D50w Syringe) 25 ml Q15M PRN IV DECREASED GLUCOSE; Start 10/07/18 at 14:30 Dextrose (D50w Syringe) 50 ml Q15M PRN IV DECREASED GLUCOSE; Start 10/07/18 at 14:30 Glucagon (Glucagen) 1 mg Q15M PRN IM DECREASED GLUCOSE; Start 10/07/18 at 14:30 Glucose (Glutose) 15 gm Q15M PRN BUCCAL DECREASED GLUCOSE; Start 10/07/18 at 14:30 Dorzolamide/ Timolol (Cosopt Pf Eye Drops) 1 drop BID LEFT EYE Last administered on 10/10/18at 08:04; Admin Dose 1 DROP; Start 10/08/18 at 22:00 Ciprofloxacin HCl (Ciloxan 0.3% Oph) 1 drop QID RIGHT EYE Last administered on 10/10/18at 12:05; Admin Dose 1 DROP; Start 10/08/18 at 23:30 Latanoprost (Xalatan) 1 drop QHS LEFT EYE Last administered on 10/09/18at 21:03; Admin Dose 1 DROP; Start 10/09/18 at 21:00 Miscellaneous Information Patients own medicat... BID@10,16 XX Last administered on 10/10/18 08:08; Admin Dose 1 EA; Start 10/09/18 at 10:00 Brimonidine Tartrate (Alphagan P 0.15%) 1 drop TID LEFT EYE Last administered on 10/10/18at 12:05; Admin Dose 1 DROP; Start 10/09/18 at 09:00 Lisinopril (Zestril) 20 mg DAILY PO Last administered on 10/10/18 08:03; Admin Dose 20 MG; Start 10/09/18 at 11:00 Insulin Aspart (Novolog Insulin Pen) NOVOLOG *MILD* ALGORITHM WITH MEALS BEDTIME SC ; Start 10/09/18 at 12:00 BRADLY MONROY October 10, 2018 15:07
[2018-10-10] MEDS: hydrALAzine 20 MG INJ IV PRN ×2 (15:24→21:17)
[2018-10-10] MEDS: ATORVASTATIN 20 MG TAB PO SCH (21:13)
[2018-10-10] MEDS: LATANOPROST 0.005% 2.5 ML OPH LEFT EYE SCH (21:15)
[2018-10-11] VITALS (18 sets, daily range): BP systolic 103–139; BP diastolic 57–93; PULSE 71–96; RESP 17–23
[2018-10-11] MEDS: ACCU-CHEK XX SCH (02:00)
[2018-10-11] MEDS: INSULIN ASPART [NOVOLOG] 3 ML PEN SC SCH ×2 (07:57→12:00)
[2018-10-11] MEDS: DORZOLAMIDE/TIMOLOL/PF 0.2 ML DROPERETTE LEFT EYE SCH (08:09)
[2018-10-11] MEDS: BRIMONIDINE 0.15% 5 ML OPH LEFT EYE SCH ×2 (08:09→12:21)
[2018-10-11] MEDS: CIPROFLOXACIN 0.3% 2.5 ML OPH RIGHT EYE SCH ×2 (08:10→12:21)
[2018-10-11] MEDS: ASPIRIN (EC) 325 MG TAB PO SCH (08:12)
[2018-10-11] MEDS: LISINOPRIL 20 MG TAB PO SCH (08:13)
[2018-10-11] MEDS: HEPARIN 5,000 UNIT/1 ML VIAL SC SCH (08:14)
--- NOTE | 2018-10-11 10:00 | PREAC ---
Date/Time of Note Date/Time of Note DATE: 10/11/18 TIME: 09:59 Anesthesia Eval and Record Evaluation Time Pre-Procedure Interview DATE: 10/11/18 TIME: 09:59 Age 43 Sex male NPO: 8 hrs Preoperative diagnosis CVA Planned procedure MICHAEL Past Medical History Past Medical History: Includes Cardio: HTN, Dyslipidemia Neuro: CVA GI: Morbid obesity Surgery & Anesthesia Issues No known issue Meds Anticoagulation: No Beta Kai within 24 hr: No Reason Beta Kai not given: Pt. not on B-Kai Reported Medications Latanoprost (Xalatan) 2.5 Ml Drops, 1 DROP LEFT EYE QHS, #1 BOTTLE 10/08/18 Brimonidine Tartrate* (Alphagan P*) 0.1%-15 Ml Opht Drops, 1 DROP LEFT EYE TID, #1 EA 10/08/18 Dorzolamide/Timolol* (Dorzolamide/Timolol*) 10 Ml Drops, 1 DROP LEFT EYE BID, #1 EA 10/08/18 Lisinopril* (Lisinopril*) 20 Mg Tablet, 20 MG PO DAILY, #30 TAB 10/07/18 Current Medications IV Flush (NS 3 ml) 3 ml PER PROTOCOL IV ; Start 10/07/18 at 14:00 Ondansetron HCl (Zofran Inj) 4 mg Q6H PRN IV NAUSEA/VOMITING; Start 10/07/18 at 14:00 Acetaminophen (Tylenol Tab) 650 mg Q6H PRN PO .PAIN 1-3 OR TEMP Last administered on 10/08/18at 16:51; Admin Dose 650 MG; Start 10/07/18 at 14:00 Acetaminophen/ Hydrocodone Bitart ([place] (5/325)) 1 tab Q6H PRN PO .MOD PAIN 4- 6 Last administered on 10/09/18at 12:05; Admin Dose 1 TAB; Start 10/07/18 at 14:00 Morphine Sulfate (morphine) 2 mg Q4H PRN IV .SEVERE PAIN 7-10; Start 10/07/18 at 14:00 Docusate Sodium (Colace) 100 mg Q12H PRN PO .CONSTIPATION; Start 10/07/18 at 14:00 Magnesium Hydroxide (Milk Of Mag) 30 ml DAILY PRN PO .CONSTIPATION; Start 10/07/18 at 14:00 Heparin Sodium (Porcine) (Heparin (5000 Units/1ml)) 5,000 unit Q12 SC Last administered on 10/11/18at 08:14; Admin Dose 5,000 UNIT; Start 10/07/18 at 21:00 Lorazepam (Ativan) 0.5 mg Q6H PRN IV ANXIETY; Start 10/07/18 at 14:00 Albuterol/ Ipratropium (Duoneb) 3 ml Q4H RESP THERAPY PRN HHN SHORTNESS OF BREATH; Start 10/07/18 at 14:00 Hydralazine HCl (Apresoline) 10 mg Q6H PRN IV ELEVATED BLOOD PRESSURE Last administered on 10/10/18at 21:17; Admin Dose 10 MG; Start 10/07/18 at 14:00 Nitroglycerin (Nitroglycerin (Sl Tab) 0.4 Mg) 1 tab Q5M PRN SL ANGINA Last administered on 10/10/18at 08:43; Admin Dose 1 TAB; Start 10/07/18 at 14:00 Aspirin (Ecotrin) 325 mg DAILY PO Last administered on 10/11/18at 08:12; Admin Dose 325 MG; Start 10/08/18 at 09:00 Diagnostic Test (Pha) (Accu-Chek) 1 ea 02 XX Last administered on 10/09/18at 02:12; Admin Dose 1 EA; Start 10/08/18 at 02:00 Atorvastatin Calcium (Lipitor) 20 mg HS PO Last administered on 10/10/18at 21:13; Admin Dose 20 MG; Start 10/08/18 at 09:00 Miscellaneous Information 1 ea NOTE XX ; Start 10/07/18 at 14:30 Glucose (Glutose) 15 gm Q15M PRN PO DECREASED GLUCOSE; Start 10/07/18 at 14:30 Glucose (Glutose) 22.5 gm Q15M PRN PO DECREASED GLUCOSE; Start 10/07/18 at 14:30 Dextrose (D50w Syringe) 25 ml Q15M PRN IV DECREASED GLUCOSE; Start 10/07/18 at 14:30 Dextrose (D50w Syringe) 50 ml Q15M PRN IV DECREASED GLUCOSE; Start 10/07/18 at 14:30 Glucagon (Glucagen) 1 mg Q15M PRN IM DECREASED GLUCOSE; Start 10/07/18 at 14:30 Glucose (Glutose) 15 gm Q15M PRN BUCCAL DECREASED GLUCOSE; Start 10/07/18 at 14:30 Dorzolamide/ Timolol (Cosopt Pf Eye Drops) 1 drop BID LEFT EYE Last administered on 10/11/18 08:09; Admin Dose 1 DROP; Start 10/08/18 at 22:00 Ciprofloxacin HCl (Ciloxan 0.3% Oph) 1 drop QID RIGHT EYE Last administered on 10/11/18 08:10; Admin Dose 1 DROP; Start 10/08/18 at 23:30 Latanoprost (Xalatan) 1 drop QHS LEFT EYE Last administered on 10/10/18 21:15; Admin Dose 1 DROP; Start 10/09/18 at 21:00 Miscellaneous Information Patients own medicat... BID@10,16 XX Last administered on 10/10/18 16:00; Admin Dose 1 EA; Start 10/09/18 at 10:00 Brimonidine Tartrate (Alphagan P 0.15%) 1 drop TID LEFT EYE Last administered on 10/11/18 08:09; Admin Dose 1 DROP; Start 10/09/18 at 09:00 Lisinopril (Zestril) 20 mg DAILY PO Last administered on 10/11/18 08:13; Admin Dose 20 MG; Start 10/09/18 at 11:00 Insulin Aspart (Novolog Insulin Pen) NOVOLOG *MILD* ALGORITHM WITH MEALS BEDTIME SC Last administered on 10/10/18 17:24; Admin Dose 1 UNIT; Start 09/29 06/19 at 12:00 Meds reviewed: Yes Allergies Coded Allergies: Penicillins (Verified Allergy, Intermediate, SEVERE RASHES, 10/07/18) Allergies Reviewed: Yes Labs/Studies Labs Reviewed: Reviewed by anesthesiologist Result Diagram: 10/11/18 0516 10/11/18 0516 Laboratory Tests 10/11/18 05:16 test: N/A Studies: ECG, CXR, 2D Echo (65% EF) Pre-procedure Exam Last vitals Vital Signs Date Temp Pulse Resp B/P (MAP) Pulse Ox O2 O2 Flow FiO2 Time Delivery Rate 10/11/18 96 08:42 10/11/18 98.0 20 139/88 95 07:23 (105) 10/11/18 Room Air 04:00 Airway: Adequate mouth opening Mallampati: Mallampati II Teeth: Normal Lung: Normal Heart: Normal ASA Physical Status ASA physical status: 4 Emergency: None Planned Anesthetic General/MAC: MAC Pre-operative Attestations Prior to commencing anesthesia and surgery, the patient was re-evaluated, there was verification of: *The patient's identity *The results of appropriate recent lab work and preoperative vital signs *The above evaluation not changing prior to induction *Anesthetic plan, risk benefits, alternative and complications discussed with patient/family; questions answered; patient/family understands, accepts and wishes to proceed. LIDIA IZAGUIRRE October 11, 2018 10:00
[2018-10-11] MEDS ORDERED: LIDOCAINE 100 MG SYRINGE ONE (10:37)
[2018-10-11] MEDS ORDERED: PROPOFOL 40 ML ONE (10:37)
[2018-10-11] MEDS ORDERED: PROPOFOL 200 ML ONE (10:37)
--- NOTE | 2018-10-11 11:22 | PAC ---
Date/Time of Note Date/Time of Note DATE: 10/11/18 TIME: 11:22 Post-Anesthesia Notes Post-Anesthesia Note Last documented vital signs Vital Signs Date Temp Pulse Resp B/P (MAP) Pulse Ox O2 O2 Flow FiO2 Time Delivery Rate 10/11/18 96 08:42 10/11/18 98.0 20 139/88 95 07:23 (105) 10/11/18 Room Air 04:00 Activity: WNL Respiratory function: WNL Cardiovascular function: WNL Mental status: Baseline Pain reasonably controlled: Yes Hydration appropriate: Yes Nausea/Vomiting absent: Yes LIDIA IZAGUIRRE October 11, 2018 11:22
[2018-10-11] MEDS ORDERED: hydrALAzine 20 MG INJ IV PRN (11:30)
[2018-10-11] MEDS ORDERED: LABETALOL HCL 20MG INJ IV PRN (11:30)
--- NOTE | 2018-10-11 12:32 | CONS ---
Assessment/Plan Assessment/Plan Hospital Course (Demo Recall) Acute/subacute thalamic stroke Hypertension morbid obesity Dyslipidemia Diabetes -MICHAEL performed today with no evidence of intracardiac thrombus and no intracardiac shunt seen -No arrhythmias seen on telemetry -Consider outpatient loop recorder Consultation Date/Type/Reason Admit Date/Time October 08, 2018 at 09:32 Initial Consult Date 10/09/18 Type of Consult Cardiology Requesting Provider: BRADLY MONROY Date/Time of Note DATE: 10/11/18 TIME: 12:30 24 HR Interval Summary Free Text/Dictation No chest pain, shortness of breath Exam/Review of Systems Vital Signs Vitals Vital Signs Date Temp Pulse Resp B/P (MAP) Pulse Ox O2 O2 Flow FiO2 Time Delivery Rate 10/11/18 98.2 87 17 108/62 96 Room Air 12:22 (77) Intake and Output 10/10/18 10/10/18 10/11/18 1515:00 23:00 07:00 IntakeIntake Total 1680 ml 250 ml BalanceBalance 1680 ml 250 ml Exam Constitutional: alert, oriented (No apparent distress) Head: normocephalic Respiratory: clear to auscultation, normal air movement Cardiovascular: regular rate and rhythm (S1-S2 heard) Gastrointestinal: soft, non-tender, bowel sounds Extremities: other (No significant edema) Labs Result Diagram: 10/11/18 0516 10/11/18 0516 Results 24hrs Laboratory Tests Test 10/10/18 17:15 10/10/18 21:05 10/11/18 05:16 10/11/18 07:53 Bedside Glucose 158 148 100 White Blood Count 13.5 H Red Blood Count 5.83 Hemoglobin 16.5 Hematocrit 50.9 Mean Corpuscular 87.3 Volume Mean Corpuscular 28.3 L Hemoglobin Mean Corpuscular 32.4 Hemoglobin Concent Red Cell 12.8 Distribution Width Platelet Count 245 Mean Platelet Volume 11.7 H Immature 0.400 Granulocytes % Neutrophils % 69.0 Lymphocytes % 19.1 Monocytes % 8.8 Eosinophils % 2.2 Basophils % 0.5 Nucleated Red Blood 0.0 Cells % Immature 0.060 H Granulocytes # Neutrophils # 9.3 H Lymphocytes # 2.6 Monocytes # 1.2 H Eosinophils # 0.3 Basophils # 0.1 Nucleated Red Blood 0.0 Cells # Sodium Level 143 Potassium Level 4.1 Chloride Level 106 Carbon Dioxide Level 28 Anion Gap 9 Blood Urea Nitrogen 18 Creatinine 0.76 Est Glomerular > 60 Filtrat Rate mL/min Glucose Level 103 Calcium Level 9.3 Test 10/11/18 12:18 Bedside Glucose 113 Medications Medications Current Medications IV Flush (NS 3 ml) 3 ml PER PROTOCOL IV ; Start 10/07/18 at 14:00 Ondansetron HCl (Zofran Inj) 4 mg Q6H PRN IV NAUSEA/VOMITING; Start 10/07/18 at 14:00 Acetaminophen (Tylenol Tab) 650 mg Q6H PRN PO .PAIN 1-3 OR TEMP Last administered on 10/08/18at 16:51; Admin Dose 650 MG; Start 10/07/18 at 14:00 Acetaminophen/ Hydrocodone Bitart (Ransom (5/325)) 1 tab Q6H PRN PO .MOD PAIN 4- 6 Last administered on 10/09/18at 12:05; Admin Dose 1 TAB; Start 10/07/18 at 14:00 Morphine Sulfate (morphine) 2 mg Q4H PRN IV .SEVERE PAIN 7-10; Start 10/07/18 at 14:00 Docusate Sodium (Colace) 100 mg Q12H PRN PO .CONSTIPATION; Start 10/07/18 at 14:00 Magnesium Hydroxide (Milk Of Mag) 30 ml DAILY PRN PO .CONSTIPATION; Start 10/07/18 at 14:00 Heparin Sodium (Porcine) (Heparin (5000 Units/1ml)) 5,000 unit Q12 SC Last administered on 10/11/18at 08:14; Admin Dose 5,000 UNIT; Start 10/07/18 at 21:00 Lorazepam (Ativan) 0.5 mg Q6H PRN IV ANXIETY; Start 10/07/18 at 14:00 Albuterol/ Ipratropium (Duoneb) 3 ml Q4H RESP THERAPY PRN HHN SHORTNESS OF BREATH; Start 10/07/18 at 14:00 Hydralazine HCl (Apresoline) 10 mg Q6H PRN IV ELEVATED BLOOD PRESSURE Last administered on 10/10/18at 21:17; Admin Dose 10 MG; Start 10/07/18 at 14:00 Nitroglycerin (Nitroglycerin (Sl Tab) 0.4 Mg) 1 tab Q5M PRN SL ANGINA Last administered on 10/10/18 08:43; Admin Dose 1 TAB; Start 10/07/18 at 14:00 Aspirin (Ecotrin) 325 mg DAILY PO Last administered on 10/11/18 08:12; Admin Dose 325 MG; Start 10/08/18 at 09:00 Diagnostic Test (Pha) (Accu-Chek) 1 ea 02 XX Last administered on 10/09/18 02:12; Admin Dose 1 EA; Start 10/08/18 at 02:00 Atorvastatin Calcium (Lipitor) 20 mg HS PO Last administered on 10/10/18 21:13; Admin Dose 20 MG; Start 10/08/18 at 09:00 Miscellaneous Information 1 ea NOTE XX ; Start 10/07/18 at 14:30 Glucose (Glutose) 15 gm Q15M PRN PO DECREASED GLUCOSE; Start 10/07/18 at 14:30 Glucose (Glutose) 22.5 gm Q15M PRN PO DECREASED GLUCOSE; Start 10/07/18 at 14:30 Dextrose (D50w Syringe) 25 ml Q15M PRN IV DECREASED GLUCOSE; Start 10/07/18 at 14:30 Dextrose (D50w Syringe) 50 ml Q15M PRN IV DECREASED GLUCOSE; Start 10/07/18 at 14:30 Glucagon (Glucagen) 1 mg Q15M PRN IM DECREASED GLUCOSE; Start 10/07/18 at 14:30 Glucose (Glutose) 15 gm Q15M PRN BUCCAL DECREASED GLUCOSE; Start 10/07/18 at 14:30 Dorzolamide/ Timolol (Cosopt Pf Eye Drops) 1 drop BID LEFT EYE Last administered on 10/11/18 08:09; Admin Dose 1 DROP; Start 10/08/18 at 22:00 Ciprofloxacin HCl (Ciloxan 0.3% Oph) 1 drop QID RIGHT EYE Last administered on 10/11/18 12:21; Admin Dose 1 DROP; Start 10/08/18 at 23:30 Latanoprost (Xalatan) 1 drop QHS LEFT EYE Last administered on 10/10/18 21:15; Admin Dose 1 DROP; Start 10/09/18 at 21:00 Miscellaneous Information Patients own medicat... BID@ XX Last administ ered on 10/10/18at 16:00; Admin Dose 1 EA; Start 10/09/18 at 10:00 Brimonidine Tartrate (Alphagan P 0.15%) 1 drop TID LEFT EYE Last administered on 10/11/18at 12:21; Admin Dose 1 DROP; Start 10/09/18 at 09:00 Lisinopril (Zestril) 20 mg DAILY PO Last administered on 10/11/18 08:13; Admin Dose 20 MG; Start 10/09/18 at 11:00 Insulin Aspart (Novolog Insulin Pen) NOVOLOG *MILD* ALGORITHM WITH MEALS B EDTIME SC Last administered on 10/10/18 17:24; Admin Dose 1 UNIT; Start 10/09/18 at 12:00 Dom Mckee DO October 11, 2018 12:32
--- NOTE | 2018-10-11 13:08 | CONS ---
Assessment/Plan Assessment/Plan Hospital Course 43 yo M with hx of HTN, obesity who presents for evaluation of R hemisensory loss, R arm/leg weakness. MRI brain confirmed an acute L thalamic infarct... for which neurology is consulted. CTA H/N is unremarkable Echo is unremarkable; MICHAEL is unremarkable UDS neg, LDL 40, ESR 10, HIV neg, RPR neg P: Await hypercoag panel Cont ASA/Lipitor for secondary stroke prevention BP and other medical management per primary PT/OT as necessary Will follow clinically Consultation Date/Type/Reason Admit Date/Time October 08, 2018 at 09:32 Type of Consult Neurology Reason for Consultation stroke Requesting Provider: BRADLY MONROY Date/Time of Note DATE: 10/11/18 TIME: 13:08 24 HR Interval Summary Free Text/Dictation Continues acute care. S/p MICHAEL Exam Vital Signs Vitals Vital Signs Date Temp Pulse Resp B/P (MAP) Pulse Ox O2 O2 Flow FiO2 Time Delivery Rate 10/11/18 83 12:38 10/11/18 98.2 17 108/62 96 Room Air 12:22 (77) Intake and Output 10/10/18 10/10/18 10/11/18 1515:00 23:00 07:00 IntakeIntake Total 1680 ml 250 ml BalanceBalance 1680 ml 250 ml Exam PE: Gen Appearance: No Apparent Distress HEENT: Normocephalic Cardiovascular: Regular rate Lungs: Clear bilaterally Abdomen: Soft Extremities: Dry NE: The patient was alert and oriented. Language was normal. Fund of knowledge was normal. Pupils were equal and reactive to light. There was no afferent pupillary defect. Visual dietrich were limited in both eyes . Funduscopic examination was limited. Extra-ocular movements were full. Ptosis was absent. There was no nystagmus. Facial sensation was normal. Face was symmetric with normal strength. Hearing was intact. Palate movements were normal. Neck strength was normal. There was normal tongue bulk and speed of movement. Tone was normal. Muscle bulk was normal. I did not see fasciculations. Arms and legs were symmetric. Vibration sensation was normal. Temperature and pinprick sensation was normal. Rapid alternating movements were normal. There was no dysmetria. There was no intention tremor. Gait was deferred due to bedrest. Arm and leg reflexes were 2+ and symmetric. Bowling's sign was absent. Plantar responses were flexor. NERY LAZAR NP October 11, 2018 13:08
[2018-10-11] MEDS ORDERED: ASPI-903 PO (14:16)
[2018-10-11] MEDS ORDERED: SIMV80TA18 PO (14:16)
--- NOTE | 2018-10-11 14:19 | PDOCDIS ---
Discharge Instructions DIAGNOSIS Discharge Diagnosis Acute left thalamic infarct CONDITION [id number] Patient Condition: [id number] Good HOME CARE INSTRUCTIONS: [id number] Diet Instructions: [id number] Regular ACTIVITY: [id number] Activity Restrictions: [id number] No Restrictions FOLLOW UP/APPOINTMENTS Follow-up Plan 1. Take all medications as prescribed. 2. See your primary care doctor in 1-2 weeks. 1. [place] todos los medicamentos segn lo prescrito. 2. Consulte a cardona mdico de atencin primaria en 1-2 semanas. ANUPAMA CONNELLY MD October 11, 2018 14:19
--- NOTE | 2018-10-11 18:18 | DS ---
Date/Time of Note Date/Time of Note DATE: 10/11/18 TIME: 18:14 Discharge Summary Admission/Discharge Info Admit Date/Time October 08, 2018 at 09:32 Discharge Date/Time October 11, 2018 at 17:21 Discharge Diagnosis Acute left thalamic infarct Patient Condition: Good Consults Dr. Naidu, neurology Dr. Kay, cardiology Procedures 10/11/18: MICHAEL Hx of Present Illness CHIEF COMPLAINT: Decreased vision and right-sided numbness. 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 He presents with blurry vision, also some weakness symptoms and weakness including his right arm and face. The patient denied any upper or lower GI bleeding. No nausea, vomiting. No fevers or chills. No diarrhea or constipation. He has been ambulating well without any difficulty. When he woke this morning and the symptoms were still present, he decided to call EMS. When he arrived, he was found with normal vital signs and normal labs, but there was a concern of TIA and he underwent head imaging studies that showed no evidence of any intracranial masses, hemorrhages or midline shifts. There are some nonspecific chronic microvascular ischemic changes. His CT of the neck did not show any cervical or major intracranial arterial occlusions, stenosis identified. PAST MEDICAL HISTORY: As above. ALLERGIES: NO KNOWN DRUG ALLERGIES. HOME MEDICATIONS: Lisinopril 20 mg daily. PAST SURGICAL HISTORY: Right eye surgery and also abdominal surgery. SOCIAL HISTORY: Negative for smoking, drinking or IV drug abuse. FAMILY HISTORY: Noncontributory. Hospital Course The patient had an MRI confirming left thalamic infarct. He was seen by PT and O T and actually does not have very severe functional deficits. Neurology consult was concerned about cardioembolic source, so patient was kept for TTE with bubble as well as MICHAEL; both of which were negative for shunting or severe valve problems. Patient discharged on aspirin and simvastatin. Home Meds Active Scripts Simvastatin* (Simvastatin*) 80 Mg Tablet, 80 MG PO QHS, #60 TAB 3 Refills Prov:ANUPAMA CONNELLY MD 10/11/18 Aspirin* (Aspirin* Chew) 81 Mg Tab.chew, 81 MG PO DAILY, #60 TAB.CHEW 3 Refills Prov:ANUPAMA CONNELLY MD 10/11/18 Reported Medications Latanoprost (Xalatan) 2.5 Ml Drops, 1 DROP LEFT EYE QHS, #1 BOTTLE 10/08/18 Brimonidine Tartrate* (Alphagan P*) 0.1%-15 Ml Opht Drops, 1 DROP LEFT EYE TID, #1 EA 10/08/18 Dorzolamide/Timolol* (Dorzolamide/Timolol*) 10 Ml Drops, 1 DROP LEFT EYE BID, #1 EA 10/08/18 Lisinopril* (Lisinopril*) 20 Mg Tablet, 20 MG PO DAILY, #30 TAB 10/07/18 Follow-up Plan 1. Take all medications as prescribed. 2. See your primary care doctor in 1-2 weeks. 1. [place] todos los medicamentos segn lo prescrito. 2. Consulte a cardona mdico de atencin primaria en 1-2 semanas. Primary Care Provider Care Physician No Primary Time spent on discharge: > 30 minutes Pending Labs Laboratory Tests Test 10/10/18 21:05 10/11/18 05:16 10/11/18 07:53 10/11/18 12:18 Bedside 148 100 113 Glucose mg/dL (70-220) mg/dL (70-220) mg/dL (70-220) White Blood 13.5 Count 10^3/ul (4.8-1 0.8) Red Blood 5.83 Count 10^6/ul (4.70- 6.10) Hemoglobin 16.5 g/dl (14.0-18. 0) Hematocrit 50.9 % (42.0-52.0) Mean 87.3 Corpuscular fl (82.0-101.0 Volume ) Mean 28.3 Corpuscular pg (29.0-33.0) Hemoglobin Mean 32.4 Corpuscular g/dl (32.0-37. Hemoglobin Conc 0) ent Red Cell 12.8 Distribution % (11.5-14.5) Width Platelet Count 245 10^3/UL (140-4 15) Mean Platelet 11.7 Volume fl (7.4-10.4) Immature 0.400 Granulocytes % % (0.001-0.429 ) Neutrophils % 69.0 % (39.0-77.0) Lymphocytes % 19.1 % (15.0-51.0) Monocytes % 8.8 % (0.0-11.0) Eosinophils % 2.2 % (0.0-7.0) Basophils % 0.5 % (0.0-2.0) Nucleated Red 0.0 Blood Cells % /100WBC (0.0-0 .0) Immature 0.060 Granulocytes # 10^3/ul (0.0-0 .031) Neutrophils # 9.3 10^3/ul (1.6-7 .5) Lymphocytes # 2.6 10^3/ul (0.8-2 .9) Monocytes # 1.2 10^3/ul (0.3-0 .9) Eosinophils # 0.3 10^3/ul (0.0-0 .5) Basophils # 0.1 10^3/ul (0.0-0 .1) Nucleated Red 0.0 Blood Cells # 10^3/ul (0.0-0 .0) Sodium Level 143 mmol/L (135-14 4) Potassium 4.1 Level mmol/L (3.5-5. 1) Chloride Level 106 mmol/L (97-110 ) Carbon Dioxide 28 Level mmol/L (21-31) Anion Gap 9 (5-13) Blood Urea 18 Nitrogen mg/dl (7-20) Creatinine 0.76 mg/dl (0.61-1. 24) Est Glomerular > 60 Filtrat mL/min (>60) Rate mL/min Glucose Level 103 mg/dl (70-220) Calcium Level 9.3 mg/dl (8.4-10. 2) ANUPAMA CONNELLY MD October 11, 2018 18:18
--- NOTE | 2018-10-11 19:37 | OPR ---
Date/Time of Note Date/Time of Note DATE: 10/11/18 TIME: 19:32 Operative Report Procedure Date: October 11, 2018 Preoperative Diagnosis CVA Postoperative Diagnosis No intracardiac thrombus Operation/Procedure Performed MICHAEL Surgeon see signature line Wool Merchant none Anesthesia Type: MAC Estimated Blood Loss: none Transfusion none Specimen none Grafts/Implants none Complications none Pt Condition Post Procedure: stable Procedure Description After informed consent, patient sedated by anesthesia. Intubated with MICHAEL probe. Images obtained. MICHAEL probe removed. No immediate complications Findings LV - normal fxn, no thrombus seen RV - normal fxn, no thrombus seen LA - no thrombus seen RA - no thrombus seen, bubble study with no intracardiac shunt seen MV - normal fxn AV - trileaflet, trace AI TR - normal fxn Conclusion No intracardiac thrombus seen, no intracardiac shunt seen Dom Mckee DO October 11, 2018 19:37
== END 2018-10-11 17:21 | disposition home or self-care (01) | DRG 65 ==
LOC: E/R 09:26 → INTOOBSV 12:54 → MS3 12:54 → SUATTDRO 13:45 → OBSVTOIN 10-08 09:32 → 6WM 10-08 18:19
PROVIDERS: ADMIT Hospitalist; ATTEND Hospitalist
PROC: B246ZZ4 Ultrasonography of Right and Left Heart, Transesophageal (ICD-10-PCS; principal; 2018-10-11)
DX: I63.9 Cerebral infarction, unspecified (principal); Z68.41 Body mass index [BMI] 40.0-44.9, adult; G81.91 Hemiplegia, unspecified affecting right dominant side; H54.61 Unqualified visual loss, right eye, normal vision left eye; R20.0 Anesthesia of skin; H53.8 Other visual disturbances; H40.9 Unspecified glaucoma; I10 Essential (primary) hypertension; E66.01 Morbid (severe) obesity due to excess calories; E78.5 Hyperlipidemia, unspecified; Z88.0 Allergy status to penicillin
CPT/HCPCS: 36415; 70450; 70496; 70498; 70551; 71045; 80048; 80061; 80307; 81003; 81240; 82550; 82553; 82962; 83036; 83090; 83735; 83890; 84100; 84439; 84443; 84484; 85025; 85240; 85300; 85302; 85305; 85610; 85651; 85730; 86146; 86147; 86592; 86703; 92610; 93005; 93306; 93312; 93880; 97110; 97116; 97162; 97167; 97530; 99217; G0378; J0360; J1644; J1815; J2001; Q9967